=== PATIENT | male | born 1960 | race Caucasian/White ===

== ENCOUNTER 2019-02-05 13:53 | Emergency (ER) | payer MEDICAID, SELFPAY ==
[2019-02-05] VITALS (36 sets, daily range): BP systolic 113–150; BP diastolic 68–89; PULSE 70–93; RESP 8–27; TEMP 36.8; O2SAT 92–97
--- NOTE | 2019-02-05 13:58 | DI.CT_ITS ---
SYMPTOMS/DIAGNOSIS: CHEST PAIN, ? DISSECTION CTA OF THE CHEST, ABDOMEN AND PELVIS: The study was carried out according to the usual protocol with an intravenous injection of 125 cc of Omnipaque 350. CT angiography was performed with multi slice acquisition and multi planar and 3D reconstruction. CTA OF THE CHEST: No acute abnormality involving the lungs is demonstrated. There is no pleural effusion. The heart is not enlarged. There is no pericardial effusion. There is no evidence of PE. There is no evidence of an aortic aneurysm or dissection. Degenerative changes involving the dorsal spine are noted. No acute bony abnormalities identified. CTA OF THE ABDOMEN AND PELVIS: There is no evidence of an aortic aneurysm or aortic dissection. The abdominal aorta and iliac vessels are normal. When compared with the prior examination, again noted is a fatty liver. Two small cysts are demonstrated, one in the right hepatic lobe and one in the left hepatic lobe, unchanged. The pancreas, spleen, kidneys and adrenals are unremarkable. There is no evidence of bowel obstruction. There is nothing to suggest an acute appendix. There is no evidence of free air or free fluid in the intraperitoneal space. The bladder is intact. The reproductive organs as visualized are intact. Degenerative changes involving the lumbar spine are apparent. No acute bony abnormality is seen. SUMMARY: A CTA of the chest, abdomen and pelvis reveals no evidence of an aortic aneurysm. No evidence of dissection. There is no acute abnormality in the thorax, abdomen or pelvis.
--- NOTE | 2019-02-05 14:00 | W.ED.GENAD ---
Discharge Plan Discharge Details Chief Complaint: Chest Pain Primary Care Provider: Chayo Hill ED Provider: Fabrizio Rick Home Meds and New Rx's Prescriptions: No Action hydrochlorothiazide 25 mg tablet 25 mg PO DAILY Qty: 90 RF: 3 tamsulosin [Flomax] 0.4 MG capsule 0.4 mg PO DAILY Qty: 90 RF: 3 naproxen sodium 550 MG tablet 550 mg PO BID 10 Days Qty: 20 RF: 0 esomeprazole magnesium [Nexium] 40 mg capsule,delayed release(DR/EC) 40 mg PO DAILY Qty: 90 RF: 3 acetaminophen [Tylenol] 325 MG tablet 325 mg PO PRN PRNRF: 0 Medical Decision Making 58 yo male with hx of htn, hld, kathe, comes in with chief complaint of chest pressure. He states it started about an hour ago and doesn't increase with exertion. Does have pain with palpation to the anterior chest. Denies recent surgeries or immobilization. On exam he is noted to be hypertensive, no hypoxia ot rachycardia or dvt on exam to suggest pe. His ekg is unchanged, heart score is 3 based on risk factors and age, will send troponin. I am concerned for possible dissection so will obtain CTA cta negative per Dr. Gaviria and initial lab work unremarkable. He states symptoms are gone. Given heart score of 3 will obtain second troponin and ecg. Could be esophageal spasm that caused his pain, apparently did have fast food earlier today Differential Diagnosis acs, chest wall pain, dissection Medical Records Medical records reviewed: Yes I reviewed the patient's medical records. Imaging Data Radiologic Study: Attestation: I personally reviewed and interpreted this imaging study as follows: Radiologist's impression: SUMMARY: A CTA of the chest, abdomen and pelvis reveals no evidence of an aortic aneurysm. No evidence of dissection. There is no acute abnormality in the thorax, abdomen or pelvis. Lab Data Lab results reviewed: Yes I reviewed the patient's lab results. ECG Data Attestation: I personally reviewed and interpreted this ECG (s) as follows: Prior ECG tracings: available for review Interpretation: sinus rhythm, rate of 82, pr 160, no acute st t wave changes HPI General Mode of arrival: ambulatory. Date/Time Provider Initiated Documentation: 02/05/19 13:53. Limitations to Documentation: no limitations. Information obtained by: patient. History of Present Illness 58 year old M presents to the emergency department with the chief complaint of chest pain, described as moderate, Quality is described as aching and other (pressure), and is localized to the chest. Patient reports no radiation. Patient started experiencing this hour(s) (1) and it has been constant. No relieving factors improve symptom(s), No exacerbating factors reported . Patient notes no other symptoms.. Patient did receive the following treatments prior to arrival, none Related Data Home Medications Medication Instructions Recorded Confirmed acetaminophen [Tylenol] 325 mg PO PRN PRN 11/20/16 02/05/19 tamsulosin [Flomax] 0.4 mg PO DAILY #90 tab-cap 11/28/17 02/05/19 naproxen sodium 550 mg PO BID 10 Days #20 tab-cap 12/07/17 02/05/19 esomeprazole magnesium 40 mg 40 mg PO DAILY #90 tab-cap 07/22/18 02/05/19 capsule,delayed release hydrochlorothiazide 25 mg tablet 25 mg PO DAILY #90 tab 01/14/19 02/05/19 Previous Rx's Medication Instructions Recorded tamsulosin [Flomax] 0.4 mg PO DAILY #90 tab-cap 11/28/17 naproxen sodium 550 mg PO BID 10 Days #20 tab-cap 12/07/17 esomeprazole magnesium 40 mg 40 mg PO DAILY #90 tab-cap 07/22/18 capsule,delayed release hydrochlorothiazide 25 mg tablet 25 mg PO DAILY #90 tab 01/14/19 Allergies Allergy/AdvReac Type Severity Reaction Status Date / Time No Known Allergies Allergy Verified 02/05/19 13:58 General Stated Complaint: Chest Pain EVE: 2 Review of Systems Review of Systems All systems reviewed & are unremarkable except as noted in HPI and below Constitutional Denies chills, Denies fever(s) and Denies weakness ENT Denies change in voice Cardiovascular Denies chest pain and Denies dyspnea Respiratory Denies cough and Denies dyspnea Gastrointestinal Denies abdominal pain, Denies nausea and Denies vomiting Integumentary/Breasts Denies rash Neurologic Denies weakness [facility] Medical History BPH (benign prostatic hyperplasia) Barretts esophagus Essential hypertension GERD (gastroesophageal reflux disease) History of cardiac catheterization KATHE (obstructive sleep apnea) Surgical History Appendectomy Arthroplasty of knee Cardiac Catheterization Cholecystectomy (10/31/17) Colonoscopy - MAC EGD - MAC Repair, Tendon or Muscle Rotator Cuff Repair (11/20/16) Spinal Surgery Family History Father Essential hypertension Heart disease Hyperlipidemia Myocardial infarction Grandmother Diabetes Social History Smoking/Tobacco Use Status: Never Alcohol Intake: never Drug use: Never Substance use type: does not use Adopted: No Caregiver/Support person: No Foster care: No Number of Children: 4 Communication Needs: None Do you need help understanding health information?: Rarely 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 Current gender identity: male What type of physical activity do you participate in: none Do you feel safe at home: Yes Do you feel safe in your relationship?: Yes Exam Const General: no acute distress Orientation: alert HENMT Head: normal to inspection Ears: external ears normal General nose exam: external nose normal Mouth: moist mucous membranes Eyes General: appearance normal, both eyes and all related structures Neck Neck: normal visual inspection Resp Effort & Inspection: normal respiratory effort and able to speak in complete sentences Cardio Rate: regular rate Skin General skin exam: no rashes or lesions noted Neuro General: alert and oriented x3 Extrem General: normal to inspection Psych Mental Status: mental status grossly normal Course Vital Signs Temperature 36.8 C 02/05/19 13:55 Pulse 85 02/05/19 13:55 Respiratory Rate 20 02/05/19 13:55 Blood Pressure 150/89 H 02/05/19 13:55 Pulse Oximetry 94 L 02/05/19 13:55 Temperature 36.8 C 02/05/19 13:55 Temperature Source Temporal Artery Scan 02/05/19 13:55 Pulse 85 02/05/19 13:55 Respiratory Rate 20 02/05/19 13:59 Respiratory Effort Non-Labored 02/05/19 13:59 Respiratory Depth Normal 02/05/19 13:59 Respiratory Pattern Normal 02/05/19 13:59 Blood Pressure 150/89 H 02/05/19 13:55 Pulse Oximetry 94 L 02/05/19 13:55 Oxygen Delivery Method Room Air 02/05/19 13:55 Oxygen Flow Rate 0 02/05/19 13:55 Pain Level 10 02/05/19 13:59
[2019-02-05] MEDS: Aspirin 81 MG CHEW 324 MG CH (14:04)
--- NOTE | 2019-02-05 14:04 | ED.GENADUL_ITS ---
Discharge Plan Discharge Details Chief Complaint: Chest Pain Primary Care Provider: Chayo Hill ED Provider: Fabrizio Rick Home Meds and New Rx's Prescriptions: No Action hydrochlorothiazide 25 mg tablet 25 mg PO DAILY Qty: 90 RF: 3 tamsulosin [Flomax] 0.4 MG capsule 0.4 mg PO DAILY Qty: 90 RF: 3 naproxen sodium 550 MG tablet 550 mg PO BID 10 Days Qty: 20 RF: 0 esomeprazole magnesium [Nexium] 40 mg capsule,delayed release(DR/EC) 40 mg PO DAILY Qty: 90 RF: 3 acetaminophen [Tylenol] 325 MG tablet 325 mg PO PRN PRNRF: 0 Medical Decision Making 58 yo male with hx of htn, hld, kathe, comes in with chief complaint of chest pressure. He states it started about an hour ago and doesn't increase with exertion. Does have pain with palpation to the anterior chest. Denies recent surgeries or immobilization. On exam he is noted to be hypertensive, no hypoxia ot rachycardia or dvt on exam to suggest pe. His ekg is unchanged, heart score is 3 based on risk factors and age, will send troponin. I am concerned for possible dissection so will obtain CTA cta negative per Dr. Gaviria and initial lab work unremarkable. He states symptoms are gone. Given heart score of 3 will obtain second troponin and ecg. Could be esophageal spasm that caused his pain, apparently did have fast food earlier today Differential Diagnosis acs, chest wall pain, dissection Medical Records Medical records reviewed: Yes I reviewed the patient's medical records. Imaging Data Radiologic Study: Attestation: I personally reviewed and interpreted this imaging study as follows: Radiologist's impression: SUMMARY: A CTA of the chest, abdomen and pelvis reveals no evidence of an aortic aneurysm. No evidence of dissection. There is no acute abnormality in the thorax, abdomen or pelvis. Lab Data Lab results reviewed: Yes I reviewed the patient's lab results. ECG Data Attestation: I personally reviewed and interpreted this ECG (s) as follows: Prior ECG tracings: available for review Interpretation: sinus rhythm, rate of 82, pr 160, no acute st t wave changes HPI General Mode of arrival: ambulatory . Date/Time Provider Initiated Documentation: 02/05/19 13:53 . Limitations to Documentation: no limitations . Information obtained by: patient . History of Present Illness 58 year old M presents to the emergency department with the chief complaint of chest pain, described as moderate, Quality is described as aching and other (pressure), and is localized to the chest. Patient reports no radiation. Patient started experiencing this hour(s) (1) and it has been constant. No relieving factors improve symptom(s), No exacerbating factors reported . Patient notes no other symptoms.. Patient did receive the following treatments prior to arrival, none Related Data Home Medications Medication Instructions Recorded Confirmed acetaminophen [Tylenol] 325 mg PO PRN PRN 11/20/16 02/05/19 tamsulosin [Flomax] 0.4 mg PO DAILY #90 tab-cap 11/28/17 02/05/19 naproxen sodium 550 mg PO BID 10 Days #20 tab-cap 12/07/17 02/05/19 esomeprazole magnesium 40 mg 40 mg PO DAILY #90 tab-cap 07/22/18 02/05/19 capsule,delayed release hydrochlorothiazide 25 mg tablet 25 mg PO DAILY #90 tab 01/14/19 02/05/19 Previous Rx's Medication Instructions Recorded tamsulosin [Flomax] 0.4 mg PO DAILY #90 tab-cap 11/28/17 naproxen sodium 550 mg PO BID 10 Days #20 tab-cap 12/07/17 esomeprazole magnesium 40 mg 40 mg PO DAILY #90 tab-cap 07/22/18 capsule,delayed release hydrochlorothiazide 25 mg tablet 25 mg PO DAILY #90 tab 01/14/19 Allergies Allergy/AdvReac Type Severity Reaction Status Date / Time No Known Allergies Allergy Verified 02/05/19 13:58 General Stated Complaint: Chest Pain EVE: 2 Review of Systems Review of Systems All systems reviewed & are unremarkable except as noted in HPI and below Constitutional Denies chills, Denies fever(s) and Denies weakness ENT Denies change in voice Cardiovascular Denies chest pain and Denies dyspnea Respiratory Denies cough and Denies dyspnea Gastrointestinal Denies abdominal pain, Denies nausea and Denies vomiting Integumentary/Breasts Denies rash Neurologic Denies weakness [facility] Medical History BPH (benign prostatic hyperplasia) Barretts esophagus Essential hypertension GERD (gastroesophageal reflux disease) History of cardiac catheterization KATHE (obstructive sleep apnea) Surgical History Appendectomy Arthroplasty of knee Cardiac Catheterization Cholecystectomy (10/31/17) Colonoscopy - MAC EGD - MAC Repair, Tendon or Muscle Rotator Cuff Repair (11/20/16) Spinal Surgery Family History Father Essential hypertension Heart disease Hyperlipidemia Myocardial infarction Grandmother Diabetes Social History Smoking/Tobacco Use Status: Never Alcohol Intake: never Drug use: Never Substance use type: does not use Adopted: No Caregiver/Support person: No Foster care: No Number of Children: 4 Communication Needs: None Do you need help understanding health information?: Rarely 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 Current gender identity: male What type of physical activity do you participate in: none Do you feel safe at home: Yes Do you feel safe in your relationship?: Yes Exam Const General: no acute distress Orientation: alert HENMT Head: normal to inspection Ears: external ears normal General nose exam: external nose normal Mouth: moist mucous membranes Eyes General: appearance normal, both eyes and all related structures Neck Neck: normal visual inspection Resp Effort & Inspection: normal respiratory effort and able to speak in complete sentences Cardio Rate: regular rate Skin General skin exam: no rashes or lesions noted Neuro General: alert and oriented x3 Extrem General: normal to inspection Psych Mental Status: mental status grossly normal Course Vital Signs Temperature 36.8 C 02/05/19 13:55 Pulse 85 02/05/19 13:55 Respiratory Rate 20 02/05/19 13:55 Blood Pressure 150/89 H 02/05/19 13:55 Pulse Oximetry 94 L 02/05/19 13:55 Temperature 36.8 C 02/05/19 13:55 Temperature Source Temporal Artery Scan 02/05/19 13:55 Pulse 85 02/05/19 13:55 Respiratory Rate 20 02/05/19 13:59 Respiratory Effort Non-Labored 02/05/19 13:59 Respiratory Depth Normal 02/05/19 13:59 Respiratory Pattern Normal 02/05/19 13:59 Blood Pressure 150/89 H 02/05/19 13:55 Pulse Oximetry 94 L 02/05/19 13:55 Oxygen Delivery Method Room Air 02/05/19 13:55 Oxygen Flow Rate 0 02/05/19 13:55 Pain Level 10 02/05/19 13:59
[2019-02-05] MEDS: fentaNYL 100 MCG/2 ML VIAL IVP (14:05)
[2019-02-05 14:11] LABS: Abs Immature Grans 0.08 k/cumm (0.0-0.09); Absolute Basophil Count 0.07 k/cumm (0.0-0.2); Absolute Eosinophil Count 0.47 k/cumm (0.0-0.7); Absolute Lymphocyte Count 2.26 k/cumm (1.2-3.4); Absolute Monocyte Count 0.79 k/cumm (0.11-0.7); Absolute Neutrophil Count 6.24 k/cumm (1.2-6.7); Basophils % 0.7; Eosinophils % 4.7; HCT 47.2 % (40.0-50.0); HGB 15.9 g/dL (13.5-17.5); Immature Grans % 0.8; Lymphocytes % 22.8; Mean Corp. HGB Concentration 33.7 g/dL (32.0-36.0); Mean Corpuscular Hemoglobin 29.1 pg (27.0-33.0); Mean Corpuscular Volume 86.4 fL (80-95); Platelet Count 245 x1000/uL (130-400); RBC 5.46 m/cumm (4.50-6.00); RBC Distribution Width 12.8 % (11.8-14.1); White Blood Cell Count 9.91 k/cumm (4.4-10.8)
[2019-02-05 14:23] LABS: INR 0.9 (0.9-1.1); PTT Activated 21.2 sec (21.0-31.4); Prothrombin Time 9.4 sec (9.3-11.0)
[2019-02-05] MEDS: Omnipaque 350 MG/ML 100 ML BTL IJ (14:35)
[2019-02-05 14:36] LABS: ALT 53 U/L (12-78); AST 27 U/L (15-37); Albumin 3.9 g/dL (3.4-5.0); Alkaline Phosphatase 93 U/L (46-116); Anion Gap 10.4 mmol/L (3-11); BUN 28 mg/dL (7-18); Bilirubin, Total 0.5 mg/dL (0.2-1.0); CO2 29.6 mmol/L (21.0-32.0); CREATININE 1.19 mg/dL (0.70-1.30); Calcium 9.1 mg/dL (8.5-10.1); Chloride 102 mmol/L (98-107); Glucose 108 mg/dL (70-100); Magnesium 1.8 mg/dL (1.8-2.4); Potassium 3.5 mmol/L (3.5-5.1); Sodium 142 mmol/L (136-145); Total Protein 7.9 g/dL (6.4-8.2)
[2019-02-05] MEDS: Omnipaque 350 MG/ML 50 ML BTL IJ (14:36)
[2019-02-05 14:38] LABS: Troponin I < 0.02 ng/mL (0.00-0.06)
[2019-02-05 17:10] LABS: Troponin I 0.02 ng/mL (0.00-0.06)
== END 2019-02-05 17:24 | disposition home or self-care (01) ==
PROVIDERS: Emergency Provider Emergency Medicine; PCP Nurse Practitioner
DX: R07.89 Other chest pain (principal); I10 Essential (primary) hypertension
CPT/HCPCS: 36415; 71275; 74177; 80053; 93005; 96374; 99285; 83735; 84484; 85025; 85610; 85730; 93010; J3010; J3490; Q9967

== ENCOUNTER 2019-03-19 00:31 | Outpatient (CLI) | payer MEDICAID, SELFPAY ==
--- NOTE | 2019-03-19 08:30 | ETT_ITS ---
*[facility]* *[facility]* [address] [place] [address] Stress Electrocardiography Milton protocol Date of study: 03/19/2019 *PATIENT PRESENTATION* Height: 180.3cm (71in) Blood Pressure: Weight: 131.8kg (290lb) BSA: 2.63m^2 Referring physician: Chayo Hill Ordering physician: Chayo Hill Impressions: Normal study after maximal exercise. Summary: 1. Stress ECG conclusions: The stress ECG is negative. Walker treadmill score: 10. This score predicts a low risk of cardiac events. 2. Stress: The target heart rate was achieved. The heart rate response to stress is normal. There is a normal resting blood pressure with an appropriate response to stress. The patient experienced no chest pain during stress. Exercise capacity is average for age. 3. Treadmill exercise testing was performed using the Milton protocol. The patient exercised for 9 min 44 sec, to protocol stage 3, to a maximal work rate of 9.4mets. Exercise was terminated due to fatigue. Indication: R07.9, Appropriate Use Criteria: A (Appropriate). History: REASON FOR TESTING: PATIENT PRESENTED TO THE ER ON 02/05/19 WITH NONEXERTIONAL MIDSTERNAL CHEST PRESSURE THAT LASTED APPROXIMATELY 45 MINUTES. PATIENT DENIES ANY OTHER SYMPTOMS OTHER THAN THIS ONE EPISODE OF CHEST PRESSURE. EKG AND TROPONINS NEGATIVE IN THE ER. PATIENT DENIES CHEST PAIN/PRESSURE UPON ARRIVAL TO TESTING TODAY. SIGNIFICANT PAST MEDICAL HISTORY: HISTORY OF CARDIAC CATHERIZATION, AVALOS'S ESOPHAGUS, GERD, KATHE. SMOKING STATUS: NEVER. EXERCISE ROUTINE: ROAD CREW MEMBER, AND DAILY ADL'S. Risk factors: Family history of coronary artery disease. Hypertension. Obesity. Dyslipidemia. Cholesterol: 157mg/dl. HDL: 43mg/dl. LDL: 102mg/dl. Triglycerides: 223mg/dl. ALLERGIES: NO KNOWN MEDICATION ALLERGIES. MEDICATIONS: TAMULOSIN 0.4 MG DAILY, HYDROCHLOROTHIAZIDE 25 MG DAILY, ESOMEPRAZOLE MAGNESIUM 40 MG DAILY. Protocol: Milton protocol. Baseline ECG: SINUS RHYTHM. HR 63 BPM. Normal ECG. Stress protocol: + +---+ + !Stage !HR !BP (mmHg) ! + +---+ + !Baseline supine !63 !130/86 (101)! + +---+ + !Baseline standing !84 !134/90 (105)! + +---+ + !Stage I; 1.7mph, 10degrees; 3 min !113!138/82 (101)! + +---+ + !Stage II; 2.5mph, 12degrees; 3 min !126!140/82 (101)! + +---+ + !Stage III; 3.4mph, 14degrees; 3 min!146!158/80 (106)! + +---+ + !Recovery; 1 min !141!160/80 (107)! + +---+ + !Recovery; 3 min !98 !166/80 (109)! + +---+ + !Recovery; 6 min !96 !132/82 (99) ! + +---+ + !Recovery; 9 min !98 ! ! + +---+ + * Stress results: STRESS TEST ENDED IN 9 MINUTES 44 SECONDS DUE TO FATIGUE. NORMAL HEART RATE AND BLOOD PRESSURE. MAX HEART RATE: 164 101 % OF TARGET HEART RATE ACHIEVED. MET'S: 9.44. RARE PVC'S DURING EXERCISE AND RECOVERY. NO ANGINA. NO SIGNIFICANT ST SEGMENT CHANGES. AVERAGE FUNCTIONAL CAPACITY FOR EXERCISE: Maximal heart rate during stress was 164bpm (101% of maximal predicted heart rate). The maximal predicted heart rate was 162bpm. The target heart rate was achieved. The heart rate response to stress is normal. There is a normal resting blood pressure with an appropriate response to stress. The rate-pressure product for the peak heart rate and blood pressure was 81527hh Hg/min. The patient experienced no chest pain during stress. Exercise capacity is average for age. Stress ECG: The stress ECG is negative. Walker treadmill score: 10. This score predicts a low risk of cardiac events. Study data: Jakub Collazo MD supervised and was readily available during the procedure. This study was interpreted by [facility]. Study status: Routine. Consent: The risks, benefits, and alternatives to the procedure were explained to the patient and informed consent was obtained. Procedure: Initial setup. A baseline ECG was recorded. Surface ECG leads and manual cuff blood pressure measurements were monitored. Heart sounds: Normal. Lung sounds: Normal. Treadmill exercise testing was performed using the Milton protocol. The patient exercised for 9 min 44 sec, to protocol stage 3, to a maximal work rate of 9.4mets. Exercise was terminated due to fatigue. Study completion: The patient tolerated the procedure well and was discharged from the lab. Discharge: The patient left the laboratory in stable condition. Birthdate: Patient birthdate: 1960. Sex: Gender: male. Study date: Study date: 03/19/2019. Study time: 00:01 AM. Signature Documentation: The Stress ECG portion of this study was interpreted by Jakub Collazo MD. Electronically signed by Jakub Collazo 03/19/2019 10:12
== END 2019-03-19 00:51 ==
PROVIDERS: PCP Nurse Practitioner; Visit Provider Nurse Practitioner
DX: R07.9 Chest pain, unspecified (principal); I10 Essential (primary) hypertension; E78.5 Hyperlipidemia, unspecified; K22.70 Barrett's esophagus without dysplasia; Z82.49 Family history of ischemic heart disease and other diseases of the circulatory system
CPT/HCPCS: 93017

== ENCOUNTER 2021-05-26 19:01 | Emergency (ER) | payer SELFPAY ==
--- NOTE | 2021-05-26 19:15 | DI.RAD_ITS ---
Exam(s) XR FOOT RT COMPLETE EXAM: XR FOOT RT COMPLETE CLINICAL HISTORY: great toe pain radiating into foot. TECHNIQUE: 2D digital imaging was performed. COMPARISON: No exams were available for comparison FINDINGS: BONES: No acute fracture is present. No bony destructive lesion is seen. There is a small plantar ca lcaneal spur. JOINTS: No dislocation present. There are degenerative changes seen in the foot, for instance at the talonavicular joint. Mild joint space narrowing of the 1st MTP joint is noted. SOFT TISSUE: Normal. IMPRESSION: 1. Mild degenerative changes of the foot. 2. No acute fracture or dislocation. DATA REPOSITORY: RADIATION DOSE DELIVERED:
--- NOTE | 2021-05-26 19:24 | ED.GENADUL_ITS ---
Discharge Plan Disposition Patient Disposition: HOME Condition: Good Discharge Details Clinical Impression: Gout attack Primary Care Provider: Chayo Hill ED Provider: Antony Garcia Meds and New Rx's Prescriptions: New colchicine [Colcrys] 0.6 mg Tablet 0.6 mg PO HS Qty: 10 RF: 0 Oxycodone, 4 Tabs/Btl [Roxicodone, 4 Tabs/Btl] 5 mg PO BID PRN (Reason: Pain) Qty: 4 RF: 0 Continued esomeprazole magnesium [Nexium] 40 mg capsule,delayed release(DR/EC) 40 mg PO DAILY Qty: 90 RF: 3 hydrochlorothiazide 25 mg tablet 25 mg PO DAILY Qty: 90 RF: 3 tamsulosin [Flomax] 0.4 mg capsule 0.4 mg PO DAILY Qty: 90 RF: 3 Changed acetaminophen [Tylenol] 325 MG tablet 650 mg PO Q6H PRNQty: 0 RF: 0 Discharge Instructions Instructions: Gout (ED), Opioid Safety (ED) Additional Instructions: This is likely acute gout flare which should resolve on colchicine. Please take 1 tablet of colchicine at night until pain/swelling has resolved. You may use the oxycodone we have given for severe pain. May also use Tylenol. Wear postop boot and weight-bear as tolerated. Follow-up with primary care next week. Return to ED for increasing pain, fever, other joint involvement, other concerns Referrals: Chayo Hill, [facility] [Primary Care Provider] - Discharge Data Discharge Date/Time-TO BE ENTERED AT DEPARTURE: 05/26/21 22:55 Medical Decision Making <MARY Mak - Last Filed: 05/26/21 22:40> Patient is a pleasant 60-year-old male presents with chief complaint of right great toe pain. Reports this began a few hours ago. Past medical history is pertinent for hypertension, GERD, KATHE. He states that he had insidious onset of right great toe pain after driving today. Has not had pain like this historically. No known trauma. On exam, patient appears nontoxic. He has exquisite discomfort with gentle palpation over the base of the right great toe. Intact capillary refill, no erythema or warmth. He has no pain proximal or distal to the area met tenderness. History and exam is most consistent with gout. He has not had gout historically. Patient certainly does have risk factors for this. Will obtain x-ray as well as baseline blood work. He just took 800 mg of ibuprofen prior to coming to the department. I do not see any evidence to suggest infectious etiology at this time When blood was being drawn, patient suffered a vasovagal event. No LOC but BP dropped and he felt presyncopal. He reports this is associated with severe pain in his foot. STates he has had similar episode in the past. Patient laid down, treated pain. Patient reevaluated. Foot has been immobilized in postoperative shoe. Given Oxy codone. At the end of my shift, care transitioned to Dr. Garcia with labs and imaging pending. Primarily concerned for gout. <Antony Garcia MD - Last Filed: 05/27/21 01:33> Patient signed out to me pending laboratory studies/x-rays. He had presented with onset of left big toe pain with no known injury. Please see MARY Sun's initial note for presentation. Patient with exquisite pain involving the IP joint of the big toe without erythema or warmth. No prior history of gout. Laboratory studies with normal white count. Chemistries unremarkable other than low potassium consistent with him being on hydrochlorothiazide. Uric acid is elevated. X-ray is negative. Patient had already received a dose of oxycodone. Continues to have significant pain so repeat dose given. Will treat presumed acute gout flare with colchicine and is given 1.2 mg followed by 0.6 mg here in the emergency department. Home to use 0.6 mg nightly until pain resolved. 4 oxycodone to go given for severe pain over the next day or 2. Instruction sheet and informed consent obtained on use of opiates. Patient to follow-up with primary care next week if not improving. Return to ED if increasing pain/swelling, fever, other joint involvement, other concerns. Lab Data Lab results reviewed: Yes I reviewed the patient's lab results. HPI <MARY Mak - Last Filed: 05/26/21 22:40> General Date/Time Provider Initiated Documentation: 05/26/21 19:23 . Limitations to Documentation: no limitations . Information obtained by: patient and RN notes reviewed . History of Present Illness 60 year old M presents to the emergency department with the chief complaint of right great toe pain, described as severe, Quality is described as stabbing, and is localized to the right and lower extremity. Patient extremity. Patient started experiencing this hour(s) and it has been constant. Immobilization improves symptom(s), Movement worsens symptoms . Patient notes no other symptoms.. Patient did receive the following treatments prior to arrival, NSAID Related Data Home Medications Medication Instructions Recorded Confirmed esomeprazole magnesium 40 mg 40 mg PO DAILY #90 tab-cap 12/13/20 12/13/20 capsule,delayed release hydrochlorothiazide 25 mg tablet 25 mg PO DAILY #90 tab 12/13/20 12/13/20 tamsulosin 0.4 mg capsule 0.4 mg PO DAILY #90 tab-cap 12/13/20 12/13/20 acetaminophen [Tylenol] 650 mg PO Q6H PRN #0 tab 05/26/21 06/12/19 colchicine [Colcrys] 0.6 mg PO HS #10 tab 05/26/21 oxyCODONE, 4 tabs/btl [Roxicodone, 5 mg PO BID PRN #4 cap 05/26/21 4 tabs/btl] Previous Rx's Medication Instructions Recorded esomeprazole magnesium 40 mg 40 mg PO DAILY #90 tab-cap 12/13/20 capsule,delayed release hydrochlorothiazide 25 mg tablet 25 mg PO DAILY #90 tab 12/13/20 tamsulosin 0.4 mg capsule 0.4 mg PO DAILY #90 tab-cap 12/13/20 acetaminophen [Tylenol] 650 mg PO Q6H PRN #0 tab 05/26/21 colchicine [Colcrys] 0.6 mg PO HS #10 tab 05/26/21 oxyCODONE, 4 tabs/btl [Roxicodone, 5 mg PO BID PRN #4 cap 05/26/21 4 tabs/btl] Allergies Allergy/AdvReac Type Severity Reaction Status Date / Time No Known Allergies Allergy Verified 05/03/21 15:26 General EVE: 2 Review of Systems <MARY Mak - Last Filed: 05/26/21 22:40> Constitutional Constitutional: Reports as per HPI, Denies chills, Denies fever(s), Denies headache(s) and Denies weakness ENT Ears, Nose, Mouth, and Throat: Denies headache(s) Cardiovascular Cardiovascular: Reports as per HPI Respiratory Respiratory: Reports as per HPI and Denies cough Musculoskeletal Musculoskeletal: Reports as per HPI and Denies tingling Integumentary/Breasts Skin/Breast: Reports as per HPI, Denies rash and Denies wounds Neurologic Neurologic: Reports as per HPI, Denies headache(s), Denies tingling, Denies paresthesias and Denies weakness PFSH <MARY Mak - Last Filed: 05/26/21 22:40> Medical History Barretts esophagus BPH (benign prostatic hyperplasia) Essential hypertension GERD (gastroesophageal reflux disease) History of cardiac catheterization KATHE (obstructive sleep apnea) on bipap Surgical History Appendectomy Arthroplasty of knee right Cardiac Catheterization Cholecystectomy (10/31/17) Colonoscopy - MAC EGD - MAC Repair, Tendon or Muscle Rotator Cuff Repair (11/20/16) Dr Kimani Esteban repair and tenodesis long head of R biceps S/P cholecystectomy Spinal Surgery Family History Father Essential hypertension Heart disease Hyperlipidemia Myocardial infarction Grandmother Diabetes Social History Smoking/Tobacco Use Status: Never Smoking risk assessment performed?: Yes Alcohol Intake: never Drug use: Never Substance use type: does not use Adopted: No Caregiver/Support person: No Foster care: No Number of Children: 4 Communication Needs: None Do you need help understanding health information?: Rarely 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 Current gender identity: male What type of physical activity do you participate in: none Do you feel safe at home: Yes Do you feel safe in your relationship?: Yes Exam <MARY Mak - Last Filed: 05/26/21 22:40> Const General: cooperative, healthy appearing, uncomfortable, no acute distress, well developed and well groomed Nutritional Appearance: well nourished and overweight Orientation: alert and awake Resp Effort & Inspection: normal respiratory effort, able to speak in complete sentences and no respiratory distress Cardio Rate: regular rate Rhythm: regular rhythm Skin General skin exam: no rashes or lesions noted Lesions: no lesions Rashes: no rashes Trauma: no lacerations or abrasions Neuro General: patient alert and patient awake Cognition: normal cognition Speech: speech normal Gait: antalgic Motor: muscle tone normal throughout Sensory Exam: no sensory deficits noted Psych Appearance: grossly normal and well kempt Mental Status: mental status grossly normal Speech and Movement: speech and movement normal Sign Out <MARY Mak - Last Filed: 05/26/21 22:40> Sign Out Data: Sign Out Comment: Care transitioned to Dr. Garcia with labs and imaging pending. Pain right great toe. Primarily concerned for gout. Received 5mg oxycodone. Patient had vasovagal episode with severe pain, currently resting comfortably. POst op shoe in place. Last updated by Bety Sun PA at 05/26/21 20:34
[2021-05-26] MEDS: oxyCODONE 5 MG TAB PO ×2 (20:05→22:00)
[2021-05-26 20:07] LABS: Abs Immature Grans 0.06 10^3/uL (0.0-0.06); Absolute Basophil Count 0.07 10^3/uL (0.0-0.2); Absolute Eosinophil Count 0.41 10^3/uL (0.0-0.7); Absolute Lymphocyte Count 2.21 10^3/uL (1.2-3.4); Absolute Monocyte Count 1.12 10^3/uL (0.1-0.8); Absolute Neutrophil Count 6.67 10^3/uL (1.2-6.7); Basophils % 0.7; Eosinophils % 3.9; HCT 42.5 % (40.0-50.0); HGB 14.4 g/dL (13.5-17.5); Immature Grans % 0.6; MCH 29.6 pg (27.0-33.0); MCHC 33.9 % (32.0-36.0); MCV 87.4 fL (80-95); MPV 8.9 fL (8.0-11.0); Monocytes % 10.6; Neutrophils % 63.2; Nucleated RBC 0 %; Platelet Count 247 10^3/uL (130-400); RBC 4.86 10^6/uL (4.36-5.78); RDW 12.2 % (11.8-14.1); RDW-SD 38.6 fL; WBC 10.54 10^3/uL (4.4-10.8)
[2021-05-26 20:09] VITALS: BP 60/30; PULSE 84; RESP 12; TEMP 36.8; O2SAT 99
[2021-05-26 20:10] VITALS: BP 119/71
--- NOTE | 2021-05-26 20:10 | NUR.NOTE ---
pt became pale and was not responsive while drawing blood, BP was 60/30 Bety aware, CBG was 123, pt reassessed and BP improved to 119/71 pt is alert and responsive currently GCS 15, medicated for pain and safety maintained, will continue to monitor.
[2021-05-26 20:17] LABS: Anion Gap 5.2 mmol/L (3-11); BUN 22 mg/dL (7-18); CO2 29.8 mmol/L (21.0-32.0); CREATININE 1.2 mg/dL (0.70-1.30); Calcium 8.2 mg/dL (8.5-10.1); Chloride 105 mmol/L (98-107); Glucose 104 mg/dL (74-106); Sodium 140 mmol/L (136-145); Uric Acid 9.5 mg/dL (3.5-7.2)
--- NOTE | 2021-05-26 21:09 | DI.VRAD_ITS ---
PROCEDURE INFORMATION: Exam: XR Right Foot Exam date and time: 05/26/2021 7:30 PM Age: 60 years old Clinical indication: Other: Great toe pain radiating into feet TECHNIQUE: Imaging protocol: XR Right foot. Views: 3 or more views. COMPARISON: No relevant prior studies available. FINDINGS: Bones/joints: Degenerative changes of the tarsal bones. Degenerative changes of the 1st metatarsal phalangeal joint and the 4th PIP joint. No fracture. Soft tissues: Mild soft tissue swelling. IMPRESSION: No acute bony findings. If clinical symptoms persist recommend followup film in 7-10 days. Dictated and Authenticated by: Myah Rosas MD. Ordering:ARUNA Albert MD
[2021-05-26 21:12] VITALS: BP 121/63; PULSE 72; RESP 12; O2SAT 99
--- NOTE | 2021-05-26 21:26 | NUR.NOTE ---
pt seen in bed sleeping, no signs of pain or distress, VS WNL, will continue to monitor and maintain safety
[2021-05-26] MEDS: Colchicine 0.6 MG TAB 1.2 MG PO (21:56)
[2021-05-26] MEDS: Colchicine 0.6 MG TAB PO (22:40)
[2021-05-26 22:57] VITALS: BP 125/77; PULSE 78; RESP 16; TEMP 37; O2SAT 99
== END 2021-05-26 22:55 | disposition home or self-care (01) ==
PROVIDERS: Physician Assistant; Emergency Provider Emergency Medicine; PCP Nurse Practitioner
DX: M10.9 Gout, unspecified (principal); R55 Syncope and collapse
CPT/HCPCS: 36415; 36416; 80048; 82962; 99284; 73630; 84550; 85025

== ENCOUNTER 2021-09-05 11:12 | Outpatient (CLI) | payer SELFPAY ==
[2021-09-05 13:21] VITALS: BP 146/92; PULSE 92; RESP 20; TEMP 38.4; O2SAT 95
[2021-09-05 14:16] VITALS: BP 127/79; PULSE 91; RESP 32; TEMP 39.2; O2SAT 94
[2021-09-05 14:31] VITALS: BP 136/87; PULSE 92; RESP 32; TEMP 38.4; O2SAT 95
[2021-09-05 15:03] VITALS: BP 128/79; PULSE 93; RESP 28; TEMP 39.3; O2SAT 94
[2021-09-05 15:31] VITALS: BP 127/81; PULSE 81; RESP 28; TEMP 39.6; O2SAT 92
== END 2021-09-05 11:13 | disposition home or self-care (01) ==
LOC: INF 11:13
PROVIDERS: PCP Nurse Practitioner; Visit Provider Family Medicine
DX: U07.1 COVID-19 (principal)
CPT/HCPCS: 96365

== ENCOUNTER 2021-09-06 09:29 | Inpatient (IN) | payer SELFPAY ==
[2021-09-06] VITALS (28 sets, daily range): BP systolic 126–159; BP diastolic 63–93; PULSE 63–140; RESP 16–41; TEMP 36.9–37.5; O2SAT 86–100
--- NOTE | 2021-09-06 09:59 | W.ED.GENAD ---
Discharge Plan Disposition Patient Disposition: [facility] INPATIENT Condition: Stable Discharge Details Clinical Impression: COVID-19, Multifocal pneumonia, Hypoxia, On supplemental oxygen therapy Admit Date/Time: 09/06/21 12:46 Admit Provider: Geovanny Gallardo Attending Provider: Geovanny Gallardo Primary Care Provider: Chayo Hill ED Provider: Jaci Brown Discharge Data Discharge Date/Time-TO BE ENTERED AT DEPARTURE: 09/06/21 13:48 Medical Decision Making 60-year-old male who is unvaccinated for Covid diagnosed with COVID-19 3 days ago presents with cough and shortness of breath for a few days and hypoxia with O2 sats in the 80s at rest at home today. Oxygen saturation 88% on room air on arrival. Now 95% on 1 L. Patient has persistent coughing and diffuse wheezing and rhonchi throughout. Consider pneumonia or PE. Will give a DuoNeb, IV Solu-Medrol, fluids, screening labs, CT chest and reassess. Labs and imaging reviewed. White blood cell count 11. Potassium 3.2, will replete. Troponin negative. Unable to obtain proof of patient's outpatient positive Covid 19 result. In-house Covid obtained here and positive. CT chest notes multifocal pneumonia but no PE. Nasal cannula had been held after neb treatment as patient felt better. His oxygen saturation dropped to mid 80s on room air at rest and increased to mid 90s on 2L NC. Will admit for neb treatments, IV steroids, IV antivirals, and supplemental oxygen. Patient is agreeable with plan. Case discussed with hospitalist who accepts pt for admission. Medical Records Medical records reviewed: Yes I reviewed the patient's medical records. Imaging Data Radiologic Study: Radiologist's impression: CT CHEST PE CTA CLINICAL HISTORY: shortness of breath, cough, fever, r/o pneumonia. TECHNIQUE: Imaging Protocol: Axial CT angiography was performed with multi-slice acquisition and multi-planar and/or 3D reconstructions. CONTRAST MATERIAL: Intravenous: Omnipaque 350 Contrast volume:structured data in ml COMPARISON: CT ABD PELVIS WITH CONTRAST from 10/24/2017 CT ABD PELVIS WITH CONTRAST from 10/24/[address] thorax abd/pel CTA from 02/05/2019 FINDINGS: CT angiography of the chest was performed with intravenous infusion of 100 cc of Omnipaque 350. There are multi focal bilateral predominantly peripheral ground-glass and consolidative opacities consistent with acute infectious process.. No pleural effusion. Tracheobronchial tree appears intact. No evidence of pulmonary embolic disease. Thoracic aorta is of normal diameter, no thoracic aortic aneurysm or dissection, major branch vessels appear intact. No mediastinal or hilar adenopathy. Images obtained through the upper abdomen show probable hepatic steatosis unremarkable appearance visualized portions of spleen pancreas and adrenals. There is a left hepatic lobe presumed cyst which was also present on prior examination of January 2019 and unchanged since that time. IMPRESSION: Multi focal ground-glass and consolidative opacities, the appearance is consistent with multifocal pneumonia. No evidence of pulmonary embolic disease. Lab Data Lab results reviewed: Yes I reviewed the patient's lab results. Labs: Laboratory Tests Range/Units 09/06/21 09/06/21 09/06/21 10:16 10:16 11:55 WBC (4.4-10.8) 10^3/uL 11.20 H RBC (4.36-5.78) 10^6/uL 5.76 Hgb (13.5-17.5) g/dL 16.8 Hct (40.0-50.0) % 50.5 H MCV (80-95) fL 87.7 MCH (27.0-33.0) pg 29.2 MCHC (32.0-36.0) % 33.3 RDW (11.8-14.1) % 13.1 Plt Count (130-400) 10^3/uL 184 MPV (8.0-11.0) fL 9.4 Immature Gran % 0.8 Neutrophils % 84.1 Lymphocytes % 11.9 Monocytes % 2.9 Eosinophils % 0.0 Basophils % 0.3 Nucleated RBC % % 0 Absolute Neutrophils (1.2-6.7) 10^3/uL 9.42 H Absolute Lymphocytes (1.2-3.4) 10^3/uL 1.33 Absolute Monocytes (0.1-0.8) 10^3/uL 0.32 Absolute Eosinophils (0.0-0.7) 10^3/uL 0.00 Absolute Basophils (0.0-0.2) 10^3/uL 0.03 Sodium (136-145) mmol/L 135 L Potassium (3.5-5.1) mmol/L 3.2 L Chloride (98-107) mmol/L 95 L Carbon Dioxide (21.0-32.0) mmol/L 31.9 Anion Gap (3-11) mmol/L 8.1 BUN (7-18) mg/dL 28 H Creatinine (0.70-1.30) mg/dL 1.4 H Estimated GFR/1.73 m2 (mL/min/1.73m2) 51.69 Glucose (74-106) mg/dL 113 H Calcium (8.5-10.1) mg/dL 8.6 Magnesium (1.8-2.4) mg/dL 2.2 Total Bilirubin (0.2-1.0) mg/dL 0.7 AST (15-37) U/L 55 H ALT (16-63) U/L 38 Alkaline Phosphatase (46-116) U/L 65 Troponin I (<0.06) ng/mL < 0.05 Total Protein (6.4-8.2) g/dL 8.0 Albumin (3.4-5.0) g/dL 3.6 COVID-19 Source Nasal/Nares SARS-CoV-2 (PCR) (Negative) Positive A* ECG Data Attestation: I personally reviewed and interpreted this ECG (s) as follows: Interpretation: rate of 89, sinus, no acute ST elevation or depression. GA 156. QRS 99. QTc 422. HPI General Mode of arrival: ambulatory. Date/Time Provider Initiated Documentation: 09/06/21 09:30. Limitations to Documentation: no limitations. Information obtained by: patient. HPI Narrative: Patient is a 60-year-old male with a history of BPH, GERD, hypertension recently diagnosed with COVID-19 3 days ago presents with cough and shortness of breath for the past 3 days, with hypoxia with oxygen saturation in the 80s at rest at home today. Patient's family has Covid. He is unvaccinated and states he will not get the vaccine. He cannot give a specific reason for why he will not vaccinated. Patient states he received the outpatient monoclonal antibody infusion yesterday and has been worse since then. He states he had a fever of 101 yesterday. He states his oxygen saturation was in the mid 80s at rest at home today. He admits to significant fatigue. Related Data Home Medications Medication Instructions Recorded Confirmed esomeprazole magnesium 40 mg 40 mg PO DAILY #90 tab-cap 12/13/20 09/06/21 capsule,delayed release hydrochlorothiazide 25 mg tablet 25 mg PO DAILY #90 tab 12/13/20 09/06/21 tamsulosin 0.4 mg capsule 0.4 mg PO DAILY #90 tab-cap 12/13/20 09/06/21 acetaminophen [Tylenol] 650 mg PO Q6H PRN #0 tab 05/26/21 09/06/21 albuterol sulfate 90 mcg/actuation 1 - 2 puff INHALATION Q4H PRN #8.5 09/05/21 09/06/21 aerosol inhaler g ibuprofen 600 mg tablet 600 mg PO TID PRN #30 tab 09/05/21 09/06/21 Previous Rx's Medication Instructions Recorded esomeprazole magnesium 40 mg 40 mg PO DAILY #90 tab-cap 12/13/20 capsule,delayed release hydrochlorothiazide 25 mg tablet 25 mg PO DAILY #90 tab 12/13/20 tamsulosin 0.4 mg capsule 0.4 mg PO DAILY #90 tab-cap 12/13/20 acetaminophen [Tylenol] 650 mg PO Q6H PRN #0 tab 05/26/21 albuterol sulfate 90 mcg/actuation 1 - 2 puff INHALATION Q4H PRN #8.5 09/05/21 aerosol inhaler g ibuprofen 600 mg tablet 600 mg PO TID PRN #30 tab 09/05/21 Allergies Allergy/AdvReac Type Severity Reaction Status Date / Time No Known Allergies Allergy Verified 09/06/21 09:49 General Stated Complaint: SOB EVE: 3 Review of Systems All systems reviewed & are unremarkable except as noted in HPI and below Constitutional Constitutional: Reports as per HPI, Denies chills and Reports fever(s) Eyes Eyes: Denies blurry vision ENT Ears, Nose, Mouth, and Throat: Denies dizziness, Denies sore throat and Denies throat swelling Cardiovascular Cardiovascular: Denies chest pain and Reports dyspnea Respiratory Respiratory: Reports cough and Reports dyspnea Gastrointestinal Gastrointestinal: Denies abdominal pain, Denies diarrhea and Denies vomiting Genitourinary Genitourinary: Denies hematuria and Denies dysuria Musculoskeletal Musculoskeletal: Denies back pain and Denies numbness Integumentary/Breasts Skin/Breast: Denies lesions and Denies rash Neurologic Neurologic: Denies dizziness, Denies localized weakness and Denies numbness Allergic/Immunologic Allergic/Immunologic: Denies throat swelling PFSH Medical History Barretts esophagus BPH (benign prostatic hyperplasia) Essential hypertension GERD (gastroesophageal reflux disease) History of cardiac catheterization KATHE (obstructive sleep apnea) on bipap Surgical History Appendectomy Arthroplasty of knee right Cardiac Catheterization Cholecystectomy (10/31/17) Colonoscopy - MAC EGD - MAC Repair, Tendon or Muscle Rotator Cuff Repair (11/20/16) Dr Harman R repair and tenodesis long head of R biceps S/P cholecystectomy Spinal Surgery Family History Father Essential hypertension Heart disease Hyperlipidemia Myocardial infarction Grandmother Diabetes Social History Smoking/Tobacco Use Status: Never Smoking risk assessment performed?: Yes Alcohol Intake: never Drug use: Never Substance use type: does not use Adopted: No Caregiver/Support person: No Foster care: No Number of Children: 4 Communication Needs: None Do you need help understanding health information?: Rarely 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 Current gender identity: male What type of physical activity do you participate in: none Do you feel safe at home: Yes Do you feel safe in your relationship?: Yes Exam Const General: cooperative and no acute distress HENMT Head: normal to inspection Face and sinus: normal facial exam Eyes General: appearance normal, both eyes and all related structures EOM: EOM intact bilaterally Neck Neck: normal visual inspection and No submandibular swelling Lymphatic: no lymphadenopathy noted Chest Chest: normal inspection of the chest and no tenderness Resp Effort & Inspection: normal respiratory effort and able to speak in complete sentences Auscultation: rhonchi upper bilaterally and lower bilaterally and wheezes scattered wheezes Cardio Rate: regular rate Rhythm: regular rhythm GI Inspection: normal to inspection Palpation: soft, not firm, not rigid and nontender Auscultation: normal bowel sounds Skin General skin exam: no rashes or lesions noted Neuro General: patient alert, patient awake and patient oriented x3 Cognition: normal cognition Speech: speech normal Motor: muscle tone normal throughout Sensory Exam: no sensory deficits noted Extrem General: normal to inspection, full ROM, capillary refill normal, no calf tenderness bilaterally and no edema Psych Appearance: grossly normal Mental Status: mental status grossly normal Speech and Movement: speech and movement normal Affect: normal affect Course Vital Signs Vital signs: Vital Signs Temperature 98.4 F 09/06/21 09:41 Pulse 90 09/06/21 09:41 Respiratory Rate 30 H 09/06/21 09:41 Blood Pressure 127/83 09/06/21 09:41 Pulse Oximetry 92 09/06/21 09:41 Temperature 98.4 F 09/06/21 09:41 Temperature Source Oral 09/06/21 09:41 Pulse 90 09/06/21 09:41 Respiratory Rate 30 H 09/06/21 09:41 Respiratory Effort 09/06/21 09:41 Blood Pressure 127/83 09/06/21 09:41 Blood Pressure Position Supine 09/06/21 09:41 Pulse Oximetry 92 09/06/21 09:41 Oxygen Delivery Method Room Air 09/06/21 09:41 Oxygen Flow Rate 0 09/06/21 09:41 Pain Level 2 09/06/21 09:41
--- NOTE | 2021-09-06 10:15 | RT.EKG_ITS ---
APPROVED REPORT Exam: Resting ECG Reason for Exam: shortness of breath Patient Location: E HR:89 bpm ECG Measurements Heart Rate 89 AXIS DC 156 P 51 QRSd 99 QRS -5 QT 347 T 31 QTc 422 Conclusion Sinus rhythm...normal P axis, V-rate 60- 99. Sinus. No STEMI. I have reviewed and interpreted ECG and agree with software generated interpretation.
[2021-09-06 10:33] LABS: Abs Immature Grans 0.09 10^3/uL (0.0-0.06); Absolute Basophil Count 0.03 10^3/uL (0.0-0.2); Absolute Lymphocyte Count 1.33 10^3/uL (1.2-3.4); Absolute Neutrophil Count 9.42 10^3/uL (1.2-6.7); Basophils % 0.3; HCT 50.5 % (40.0-50.0); HGB 16.8 g/dL (13.5-17.5); Immature Grans % 0.8; Lymphocytes % 11.9; MCH 29.2 pg (27.0-33.0); MCHC 33.3 % (32.0-36.0); MCV 87.7 fL (80-95); MPV 9.4 fL (8.0-11.0); Monocytes % 2.9; Neutrophils % 84.1; Nucleated RBC 0 %; Platelet Count 184 10^3/uL (130-400); RBC 5.76 10^6/uL (4.36-5.78); RDW 13.1 % (11.8-14.1)
[2021-09-06 10:34] LABS: Absolute Monocyte Count 0.32 10^3/uL (0.1-0.8)
[2021-09-06] MEDS: Albuterol/Ipratropium 3 ML UPD VIAL UPD (10:36)
[2021-09-06] MEDS: methylPREDNISolone SUCC 125 MG VIAL IVP (10:36)
[2021-09-06] MEDS: Normal Saline 1,000 ML 1000 ML IV (10:41)
[2021-09-06 10:50] LABS: ALT 38 U/L (16-63); AST 55 U/L (15-37); Albumin 3.6 g/dL (3.4-5.0); Alkaline Phosphatase 65 U/L (46-116); Anion Gap 8.1 mmol/L (3-11); BUN 28 mg/dL (7-18); Bilirubin, Total 0.7 mg/dL (0.2-1.0); CO2 31.9 mmol/L (21.0-32.0); CREATININE 1.4 mg/dL (0.70-1.30); Calcium 8.6 mg/dL (8.5-10.1); Chloride 95 mmol/L (98-107); Estimated GFR 51.69 (mL/min/1.73m2); Glucose 113 mg/dL (74-106); Magnesium 2.2 mg/dL (1.8-2.4); Potassium 3.2 mmol/L (3.5-5.1); Sodium 135 mmol/L (136-145)
[2021-09-06 10:54] LABS: Troponin I < 0.05 ng/mL (<0.06)
[2021-09-06] MEDS: Omnipaque 350 MG/ML 100 ML BTL IJ (11:23)
--- NOTE | 2021-09-06 11:29 | DI.CT_ITS ---
Exam(s) CT CHEST PE CTA EXAM: CT CHEST PE CTA CLINICAL HISTORY: shortness of breath, cough, fever, r/o pneumonia. TECHNIQUE: Imaging Protocol: Axial CT angiography was performed with multi-slice acquisition and mu lti-planar and/or 3D reconstructions. CONTRAST MATERIAL: Intravenous: Omnipaque 350 Contrast volume:structured data in ml COMPARISON: CT ABD PELVIS WITH CONTRAST from 10/24/2017 CT ABD PELVIS WITH CONTRAST from 10/24/[address] thorax abd/pel CTA from 02/05/2019 FINDINGS: CT angiography of the chest was performed with intravenous infusion of 100 cc of Omnipaque 350. There are multi focal bilateral predominantly peripheral ground-glass and consolidative opacities con sistent with acute infectious process.. No pleural effusion. Tracheobronchial tree appears intact. No evidence of pulmonary embolic disease. Thoracic aorta is of normal diameter, no thoracic aortic an eurysm or dissection, major branch vessels appear intact. No mediastinal or hilar adenopathy. Images obtained through the upper abdomen show probable hepatic steatosis unremarkable appearance vis ualized portions of spleen pancreas and adrenals. There is a left hepatic lobe presumed cyst which w as also present on prior examination of January 2019 and unchanged since that time. IMPRESSION: Multi focal ground-glass and consolidative opacities, the appearance is consistent with multifocal pn eumonia. No evidence of pulmonary embolic disease. RADIATION DOSE DELIVERED: 615.4mGy.cm Total DLP 615.4mGy.cm Total DLP CTDIvol DATA REPOSITORY: All CT scans at this facility are submitted to the National Radiology Data Registry (NRDR) Dose Index Registry (DIR) with the [employer] ([employer]). RADIATION OPTIMIZATION: All CT scans at this facility use at least one of these dose optimization te chniques: automated exposure control; mA and/or kV adjustment per patient size (includes targeted exa ms where dose is matched to clinical indication); or iterative reconstruction.
[2021-09-06] MEDS: Potassium Chloride 20 MEQ TABCR 40 MEQ PO ×2 (11:43→17:39)
[2021-09-06 12:00] LABS: Source Nasal/Nares
[2021-09-06 12:55] LABS: COVID-19 PCR Positive (Negative)
[2021-09-06 13:30] LABS: C-Reactive Protein 9.64 mg/dL (0.0-0.3)
[2021-09-06 13:54] LABS: Procalcitonin 0.6 ng/mL
--- NOTE | 2021-09-06 14:05 | PHA.REVIEW ---
Pharmacy Admission Review - Admission Clinical Review (Last Reviewed 05/26/21 @ 19:31 by MARY Mak) COVID-19 (Acute) Multifocal pneumonia (Acute) Hypoxia (Acute) On supplemental oxygen therapy (Acute) No Known Allergies Allergy (Verified 09/06/21 09:49) Resuscitation Status Full Code Height 6 ft 1 in Weight 117.934 kg - Renal Dosing Renal Dosing: BUN 28 mg/dL (7-18) H 09/06/21 10:16 Creatinine 1.4 mg/dL (0.70-1.30) H 09/06/21 10:16 Medications needing adjustments: Reviewed (SCr: 1.4, CrCl:~ 75.5 mL/min using adjusted body weight. All medications dosed appropriately.) - Anticoagulation Anticoagulation: Hgb 16.8 g/dL (13.5-17.5) 09/06/21 10:16 Hct 50.5 % (40.0-50.0) H 09/06/21 10:16 Plt Count 184 10^3/uL (130-400) 09/06/21 10:16 Creatinine 1.4 mg/dL (0.70-1.30) H 09/06/21 10:16 DVT Prophylaxis: Reviewed Medications: Enoxaparin (Enoxaparin 40mg SC Q24H) Therapeutic Anticoagulation: N/A - Opiate Usage Evaluate Pain Scale/Pains Meds: N/A (No opiates ordered, pain was a 2/10 on admission.) Scheduled Bowel Reg ordered if on Opiates?: Yes (Polyethylene glycol sched) - Relevant Labs Sodium 135 mmol/L (136-145) L 09/06/21 10:16 Potassium 3.2 mmol/L (3.5-5.1) L 09/06/21 10:16 Chloride 95 mmol/L (98-107) L 09/06/21 10:16 Magnesium 2.2 mg/dL (1.8-2.4) 09/06/21 10:16 C-Reactive Protein 9.64 mg/dL (0.0-0.3) H 09/06/21 10:16 Electrolytes, C-Reactive P, ESR: Reviewed (Potassium low, PO Potassium replacement ordered.) - DM Control DM Control: Glucose 113 mg/dL (74-106) H 09/06/21 10:16 Insulin Dosing: N/A - Heart Failure/VT Heart Failure/VT: Troponin I < 0.05 ng/mL (<0.06) 09/06/21 10:16 EF%, TAL's, B-Blockers, Diuretics: N/A - BP Control BP Control: Blood Pressure 127/65 Blood Pressure 148/63 Blood Pressure 156/88 Blood Pressure 159/92 Blood Pressure 148/93 Blood Pressure 138/85 Blood Pressure 127/83 Blood Pressure 127/83 If elevated: N/A - Qtc Review If Elevated: N/A (QTc 422 on admission) - IV to PO Switch IV Medications: Intervened (Albuterol directions clarified - now 2 puffs Q4H PRN and changed Famotidine suspension to tablets.) - Home Meds Home Med List reviewed: Reviewed Relevent Home Meds Not ordered & why?: Esomeprazole 40mg daily (Famotidine 20mg BID ordered) - Current meds Current Medication Order Review: Reviewed - Comments Comments/Follow Ups: Continue to monitor labs, potassium, vital signs and changes in medications. Antibiotic Activity - Pharmacy Antibiotic Review Pharmacy Antibiotic Activity: Reviewed, no change (Ceftriaxone and Doxycycline started empirically.)
[2021-09-06] MEDS: REMDESIVIR 200 MG in Normal Saline 250 ML 250 MG IVPB (14:26)
[2021-09-06 14:29] LABS: D-Dimer 858 ng/mlFEU (<500)
[2021-09-06] MEDS: cefTRIAXone 1 GM/50 ML BAG IVPB (15:36)
[2021-09-06] MEDS: Normal Saline Flush 10 ML SYR IVP ×2 (15:37→19:41)
[2021-09-06] MEDS: Enoxaparin 40 MG/0.4 ML SYR SC (16:49)
[2021-09-06] MEDS: Famotidine 20 MG TAB PO (19:40)
[2021-09-06] MEDS: Doxycycline Hyclate 100 MG CAP PO (19:40)
[2021-09-06] MEDS: Ascorbic Acid 500 MG TAB 1000 MG PO (19:40)
[2021-09-06] MEDS: Potassium Chloride 20 MEQ TABCR PO (19:40)
[2021-09-06] MEDS: Acetaminophen 325 MG TAB PO (20:33)
--- NOTE | 2021-09-06 20:42 | HPE_ITS ---
Date of service: 09/06/21 Time of Service: 17:35 Assessment and Plan Assessment and plan (1) COVID-19: Status: Acute Assessment and plan: Dexamethasone and Remdesivir scheduled. Continuous O2 monitoring. Requiring supplemental O2 per NC at 1L. Vit D and C supplementation. Albuterol prn. Encourage proning and if unable or unwilling, side to side. IS. Trend inflammatory markers. (2) Multifocal pneumonia: Status: Acute Assessment and plan: Given procal of 0.8 and mildly elevated WBC count, there is a concern for a superimposed bacterial pneumonia. Rocephin and doxycycline initiated. (3) Adjustment disorder with depressed mood: Status: Acute Assessment and plan: Currently on no medications for this dx. Monitor for anxiety/depression. (4) Hyperlipidemia: Status: Chronic Assessment and plan: Not on any lipid lowering medications (5) Obstructive sleep apnea: Status: Acute Assessment and plan: Uses BiPAP at night (6) HTN (hypertension): Status: Chronic Assessment and plan: Cont HCTZ and trend. Controlled. History of Present Illness History of Present Illness Chief Complaint: Shortness of breath and cough Narrative: This is a 60 yo male with a PMH of HTN, GERD, BPH, adjustment d.o./depressed mood, Obesity, HLD, KATHE. He was dxd with COVID-19 three days prior to presentation to the ED. He is unvaccinated. COVID test positive 3 days prior to admission. He received mAb infusion as an outpt the day prior to admission. On arrival his RA O2 saturation was 88%. He endorsed saturations in the 80's at home. He was noted to have a frequent cough with diffuse wheezing and rhonchi. He denied fevers. No CP. WBC count 11. K 3.2. Troponin negative. CTchest with multifocal bilateral pneumonia. No pulmonary emboli. He was given IV solu-medrol, IV fluids and Duoneb administration. Admitted for further treatment. Review of Systems All systems reviewed & are unremarkable except as noted in HPI and below [facility] Active Problem List COVID-19 (Acute) Multifocal pneumonia (Acute) Hypoxia (Acute) On supplemental oxygen therapy (Acute) SARS-CoV-2 positive (Acute) Gout attack (Acute) IFG (impaired fasting glucose) (Acute) Papule (Acute) Adjustment disorder with depressed mood (Acute 01/23/11) BMI 38.0-38.9,adult (Acute 01/01/15) Raza's esophagus (Acute 06/11/09) History of kidney stones (Acute 06/13/16) Hyperlipidemia (Chronic 12/22/05) Low back pain (Acute 08/22/13) Microscopic hematuria (Acute 06/13/16) Obstructive sleep apnea (Acute 05/04/14) Onychomycosis (Acute 02/05/14) Unstable angina (Acute 06/19/17) Diarrhea (Acute) HTN (hypertension) (Chronic) Medical History Barretts esophagus BPH (benign prostatic hyperplasia) Essential hypertension GERD (gastroesophageal reflux disease) History of cardiac catheterization KATHE (obstructive sleep apnea) on bipap Surgical History Appendectomy Arthroplasty of knee right Cardiac Catheterization Cholecystectomy (10/31/17) Colonoscopy - MAC EGD - MAC Repair, Tendon or Muscle Rotator Cuff Repair (11/20/16) Dr Harman R repair and tenodesis long head of R biceps S/P cholecystectomy Spinal Surgery Family History Father Essential hypertension Heart disease Hyperlipidemia Myocardial infarction Grandmother Diabetes Social History Smoking/Tobacco Use Status: Never Smoking risk assessment performed?: Yes Alcohol Intake: never Drug use: Never Substance use type: does not use Adopted: No Caregiver/Support person: No Foster care: No Number of Children: 4 Communication Needs: None Do you need help understanding health information?: Rarely 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 Current gender identity: male What type of physical activity do you participate in: none Do you feel safe at home: Yes Do you feel safe in your relationship?: Yes Meds Allergies and Home Medications Allergies Allergy/AdvReac Type Severity Reaction Status Date / Time No Known Allergies Allergy Verified 09/06/21 09:49 Home Medications Medication Instructions Recorded Confirmed Type esomeprazole magnesium 40 mg 40 mg PO DAILY #90 tab-cap 12/13/20 09/06/21 Rx capsule,delayed release hydrochlorothiazide 25 mg tablet 25 mg PO DAILY #90 tab 03/01/21 11/23/21 Rx tamsulosin 0.4 mg capsule 0.4 mg PO DAILY #90 tab-cap 12/13/20 09/06/21 Rx acetaminophen [Tylenol] 650 mg PO Q6H PRN #0 tab 05/26/21 09/06/21 Rx albuterol sulfate 90 mcg/actuation 1 - 2 puff INHALATION Q4H PRN #8.5 09/05/21 09/06/21 Rx aerosol inhaler g ibuprofen 600 mg tablet 600 mg PO TID PRN #30 tab 09/05/21 09/06/21 Rx Exam Narrative Exam Narrative: Lying supine. Conversational. Const General: cooperative and no acute distress Nutritional Appearance: obese Orientation: alert and oriented x3 HENMT Head: atraumatic Ears: hearing grossly normal bilaterally Neck Neck: full ROM and no JVD Resp Effort & Inspection: normal respiratory effort Auscultation: rhonchi (Faint) Cardio Rate: regular rate Rhythm: regular rhythm Heart Sounds: S1 normal and S2 normal Skin General skin exam: no rashes or lesions noted Neuro General: no focal motor deficits Cognition: normal cognition Speech: speech normal Sensory Exam: no sensory deficits noted Extrem General: no pedal edema and no calf tenderness Psych Appearance: grossly normal Speech and Movement: speech and movement normal Mood: congruent mood Affect: normal affect Results Labs Result diagrams: 09/07/21 07:20 09/07/21 07:20 Labs: Laboratory Results - last 24 hr 09/06/21 09/06/21 09/06/21 10:15 10:16 10:16 WBC 11.20 H RBC 5.76 Hgb 16.8 Hct 50.5 H MCV 87.7 MCH 29.2 MCHC 33.3 RDW 13.1 Plt Count 184 MPV 9.4 Immature Gran % 0.8 Neutrophils % 84.1 Lymphocytes % 11.9 Monocytes % 2.9 Eosinophils % 0.0 Basophils % 0.3 Nucleated RBC % 0 Absolute Neutrophils 9.42 H Absolute Lymphocytes 1.33 Absolute Monocytes 0.32 Absolute Eosinophils 0.00 Absolute Basophils 0.03 D-Dimer Sodium 135 L Potassium 3.2 L Chloride 95 L Carbon Dioxide 31.9 Anion Gap 8.1 BUN 28 H Creatinine 1.4 H Estimated GFR/1.73 m2 51.69 Glucose 113 H Calcium 8.6 Magnesium 2.2 Total Bilirubin 0.7 AST 55 H ALT 38 Alkaline Phosphatase 65 Troponin I < 0.05 C-Reactive Protein 9.64 H Total Protein 8.0 Albumin 3.6 Procalcitonin 0.6 COVID-19 Source SARS-CoV-2 (PCR) 09/06/21 09/06/21 11:55 13:41 WBC RBC Hgb Hct MCV MCH MCHC RDW Plt Count MPV Immature Gran % Neutrophils % Lymphocytes % Monocytes % Eosinophils % Basophils % Nucleated RBC % Absolute Neutrophils Absolute Lymphocytes Absolute Monocytes Absolute Eosinophils Absolute Basophils D-Dimer 858 H Sodium Potassium Chloride Carbon Dioxide Anion Gap BUN Creatinine Estimated GFR/1.73 m2 Glucose Calcium Magnesium Total Bilirubin AST ALT Alkaline Phosphatase Troponin I C-Reactive Protein Total Protein Albumin Procalcitonin COVID-19 Source Nasal/Nares SARS-CoV-2 (PCR) Positive A* Last Vital Signs Temp 37.5 C 09/06/21 20:39 Pulse 75 09/06/21 20:39 Resp 20 09/06/21 20:39 BP 126/85 09/06/21 20:39 Pulse Ox 90 L 09/06/21 15:58
[2021-09-07] VITALS (11 sets, daily range): BP systolic 115–125; BP diastolic 84–88; PULSE 61–78; RESP 20–28; TEMP 36.6–36.9; O2SAT 90–95
[2021-09-07] MEDS: Normal Saline Flush 10 ML SYR IVP (07:26)
[2021-09-07] MEDS: Ascorbic Acid 500 MG TAB 1000 MG PO ×2 (07:26→20:49)
[2021-09-07] MEDS: Doxycycline Hyclate 100 MG CAP PO ×2 (07:26→20:49)
[2021-09-07] MEDS: Acetaminophen 325 MG TAB PO (07:26)
[2021-09-07] MEDS: Potassium Chloride 20 MEQ TABCR PO ×2 (07:26→20:50)
[2021-09-07] MEDS: Famotidine 20 MG TAB PO ×2 (07:26→20:49)
[2021-09-07 07:38] LABS: Abs Immature Grans 0.07 10^3/uL (0.0-0.06); Absolute Basophil Count 0.01 10^3/uL (0.0-0.2); Absolute Monocyte Count 0.59 10^3/uL (0.1-0.8); Absolute Neutrophil Count 7.75 10^3/uL (1.2-6.7); Basophils % 0.1; HCT 45.2 % (40.0-50.0); Immature Grans % 0.7; Lymphocytes % 13.4; MCH 28.9 pg (27.0-33.0); MCHC 33.2 % (32.0-36.0); MCV 87.1 fL (80-95); MPV 9.5 fL (8.0-11.0); Monocytes % 6.1; Neutrophils % 79.7; Nucleated RBC 0 %; Platelet Count 171 10^3/uL (130-400); RBC 5.19 10^6/uL (4.36-5.78); RDW 12.8 % (11.8-14.1); RDW-SD 40.9 fL; WBC 9.72 10^3/uL (4.4-10.8)
[2021-09-07 07:55] LABS: ALT 35 U/L (16-63); AST 40 U/L (15-37); Albumin 2.8 g/dL (3.4-5.0); Alkaline Phosphatase 49 U/L (46-116); Anion Gap 9.3 mmol/L (3-11); BUN 24 mg/dL (7-18); Bilirubin, Total 0.5 mg/dL (0.2-1.0); C-Reactive Protein 9.71 mg/dL (0.0-0.3); CO2 28.7 mmol/L (21.0-32.0); CREATININE 0.9 mg/dL (0.70-1.30); Calcium 8.3 mg/dL (8.5-10.1); Chloride 103 mmol/L (98-107); Glucose 122 mg/dL (74-106); Potassium 3.8 mmol/L (3.5-5.1); Sodium 141 mmol/L (136-145); Total Protein 6.7 g/dL (6.4-8.2)
[2021-09-07 08:09] LABS: D-Dimer 841 ng/mlFEU (<500)
[2021-09-07] MEDS: Cholecalciferol (Vitamin D3) 1,000 UNIT TAB 2000 UNITS PO (08:11)
[2021-09-07] MEDS: Dexamethasone 10 MG/ML VIAL 6 MG IVP (08:11)
[2021-09-07] MEDS: hydroCHLOROthiazide 25 MG TAB PO (08:11)
[2021-09-07] MEDS: Tamsulosin 0.4 MG CAPCR PO (08:11)
--- NOTE | 2021-09-07 09:54 | PDOC.CMIN ---
- If Service Date Differs Date of service: 09/07/21 Time of Service: 09:54 Care Management Initial Assess REASON FOR HOSPITALIZATION:: Covid Pneumonia PAST MEDICAL HISTORY/PAST SURGICAL HISTORY:: Medical History . Barretts esophagus. BPH (benign prostatic hyperplasia). Essential hypertension. GERD (gastroesophageal reflux disease). History of cardiac catheterization. KATHE (obstructive sleep apnea). on bipap. Surgical History . Appendectomy. Arthroplasty of knee. right. Cardiac Catheterization. Cholecystectomy (10/31/17). Colonoscopy - MAC. EGD - MAC. Repair, Tendon or Muscle. Rotator Cuff Repair (11/20/16). Dr Harman. R repair and tenodesis long head of R biceps. S/P cholecystectomy. Spinal Surgery PREVIOUS FUNCTIONAL STATUS/SOCIAL/FAMILY SUPPORTS:: Esther lives in [facility] with his . He is self employed, drives and independent at baseline. CURRENT FUNCTIONAL STATUS:: CM met with Esther over the phone due to Covid restrictions. Esther reported that he is feeling slightly better today. He shared with CM that he is self employed and doesn't have health coverage. CM faxed a referral to [employer]. Milena from [employer] is helping patient to determine his eligibility for State vs Commercial insurance, Milena also talked to Amparo from [facility] about financial assistance and to inquire about potential covid related funding. ADVANCE DIRECTIVES:: None on file Has patient been provided with info about the portal/API?: Yes Did the patient sign up for the portal?: No CODE STATUS:: Full Code INSURANCE COVERAGE / FINANCIAL ISSUES:: Self pay. CM connected patient with [employer]. CURRENT HOME/COMMUNITY SERVICES/EQUIPMENT:: None PRIMARY CARE PHYSICIAN:: [place] PATIENT/FAMILY EDUCATION NEEDS:: Review discharge instructions, limitations and plan to follow up with community providers. ask me three. TRANSPORTATION:: Via private vehicle located in parking lot. PLAN:: Anticipate Esther will be discharged home via private vehicle when medically cleared by . RT will continue to assess his need for home O2. Pt will follow up with community providers and discharge plan of care as prescribed.
[2021-09-07] MEDS: cefTRIAXone 1 GM/50 ML BAG IVPB (13:40)
[2021-09-07] MEDS: Enoxaparin 40 MG/0.4 ML SYR SC (15:45)
--- NOTE | 2021-09-07 16:01 | W.PM.PROGNOT ---
Date of Service Date of service: 09/07/21 Time of Service: 16:01 Assessment and Plan Assessment and plan (1) COVID-19: Status: Acute Assessment and plan: Now requiring 4L supplemental O2 per NC with O2 sats in the low 90's. Dexamethasone and Remdesivir scheduled. Continuous O2 monitoring. Requiring supplemental O2 per NC at 1L. Vit D and C supplementation. Albuterol prn. Encourage proning and if unable or unwilling, side to side. IS. Trend inflammatory markers; d-dimer and CRP essentially unchanged. C (2) Multifocal pneumonia: Status: Acute Assessment and plan: Given procal of 0.6 and mildly elevated WBC count, there is a concern for a superimposed bacterial pneumonia. Rocephin and doxycycline initiated. Procal in AM (3) Adjustment disorder with depressed mood: Status: Acute Assessment and plan: Currently on no medications for this dx. Monitor for anxiety/depression. (4) Hyperlipidemia: Status: Chronic Assessment and plan: Not on any lipid lowering medications Initiate atorvastain if oxygen status worsens. (5) Obstructive sleep apnea: Status: Acute Assessment and plan: Uses BiPAP at night (6) HTN (hypertension): Status: Chronic Assessment and plan: Cont HCTZ and trend. Controlled. Subjective Subjective Patient reports: tolerating a regular diet, shortness of breath and afebrile; denies nausea and vomiting Interval history since last seen: Feels no different than yesterday. Cough / dry. No CP. Exam Narrative Exam Narrative: Lying supine. Conversational / hoarse quality to voice Const General: cooperative and no acute distress Nutritional Appearance: obese Orientation: alert and oriented x3 HENMT Head: atraumatic Ears: hearing grossly normal bilaterally Neck Neck: full ROM and no JVD Resp Effort & Inspection: normal respiratory effort Auscultation: rhonchi (Faint) Cardio Rate: regular rate Rhythm: regular rhythm Heart Sounds: S1 normal and S2 normal Skin General skin exam: no rashes or lesions noted Neuro General: no focal motor deficits Cognition: normal cognition Speech: speech normal Sensory Exam: no sensory deficits noted Extrem General: no pedal edema and no calf tenderness Psych Appearance: grossly normal Speech and Movement: speech and movement normal Mood: congruent mood Affect: normal affect Objective Last Vital Signs Temp 36.6 C 09/07/21 15:48 Pulse 66 09/07/21 15:48 Resp 28 H 09/07/21 15:48 BP 119/84 09/07/21 12:07 Pulse Ox 90 L 09/07/21 15:48 Laboratory Results - last 24 hr 09/07/21 09/07/21 09/07/21 07:20 07:20 07:20 WBC 9.72 RBC 5.19 Hgb 15.0 Hct 45.2 MCV 87.1 MCH 28.9 MCHC 33.2 RDW 12.8 Plt Count 171 MPV 9.5 Immature Gran % 0.7 Neutrophils % 79.7 Lymphocytes % 13.4 Monocytes % 6.1 Eosinophils % 0.0 Basophils % 0.1 Nucleated RBC % 0 Absolute Neutrophils 7.75 H Absolute Lymphocytes 1.30 Absolute Monocytes 0.59 Absolute Eosinophils 0.00 Absolute Basophils 0.01 D-Dimer 841 H Sodium 141 Potassium 3.8 Chloride 103 Carbon Dioxide 28.7 Anion Gap 9.3 BUN 24 H Creatinine 0.9 D Estimated GFR/1.73 m2 >= 60.00 Glucose 122 H Calcium 8.3 L Total Bilirubin 0.5 AST 40 H ALT 35 Alkaline Phosphatase 49 C-Reactive Protein 9.71 H Total Protein 6.7 Albumin 2.8 L
[2021-09-07] MEDS: guaiFENesin/CODEINE PHOSPHATE 10 ML CUP PO (16:46)
[2021-09-08] VITALS (10 sets, daily range): BP systolic 113–136; BP diastolic 65–89; PULSE 54–79; RESP 12–20; TEMP 36–37; O2SAT 91–93
[2021-09-08] MEDS: guaiFENesin/CODEINE PHOSPHATE 10 ML CUP PO ×2 (01:50→06:00)
[2021-09-08] MEDS: Dexamethasone 10 MG/ML VIAL 6 MG IVP (08:34)
[2021-09-08] MEDS: Cholecalciferol (Vitamin D3) 1,000 UNIT TAB 2000 UNITS PO (08:34)
[2021-09-08] MEDS: Ascorbic Acid 500 MG TAB 1000 MG PO ×2 (08:34→20:34)
[2021-09-08] MEDS: Famotidine 20 MG TAB PO ×2 (08:35→20:34)
[2021-09-08] MEDS: Doxycycline Hyclate 100 MG CAP PO ×2 (08:35→20:34)
[2021-09-08] MEDS: hydroCHLOROthiazide 25 MG TAB PO (08:35)
[2021-09-08] MEDS: Tamsulosin 0.4 MG CAPCR PO (08:36)
[2021-09-08] MEDS: Potassium Chloride 20 MEQ TABCR PO ×2 (08:36→20:34)
[2021-09-08] MEDS: Polyethylene Glycol 3350 17 GM PACKET PO (08:36)
[2021-09-08] MEDS: Normal Saline Flush 10 ML SYR IVP (08:42)
[2021-09-08 08:47] LABS: C-Reactive Protein 4.39 mg/dL (0.0-0.3)
[2021-09-08 09:31] LABS: D-Dimer 634 ng/mlFEU (<500)
[2021-09-08 10:52] LABS: Procalcitonin 0.2 ng/mL
[2021-09-08] MEDS: cefTRIAXone 1 GM/50 ML BAG IVPB (14:40)
--- NOTE | 2021-09-08 15:01 | W.PM.PROGNOT ---
Date of Service Date of service: 09/08/21 Time of Service: 15:01 Assessment and Plan Assessment and plan (1) COVID-19: Status: Acute Assessment and plan: Has been on RA all day with O2 saturations in the low 90's. Dexamethasone and Remdesivir scheduled. Continuous O2 monitoring. Requiring supplemental O2 per NC at 1L. Vit D and C supplementation. Albuterol prn. Encourage proning and if unable or unwilling, side to side. IS. Trend inflammatory markers; d-dimer and CRP now trending down. If still doing well on RA, plan to d/c tomorrow. (2) Multifocal pneumonia: Status: Acute Assessment and plan: Given procal of 0.6 and mildly elevated WBC count, there is a concern for a superimposed bacterial pneumonia. Rocephin and doxycycline initiated. Procal decreased to 0.2. (3) Adjustment disorder with depressed mood: Status: Acute Assessment and plan: Currently on no medications for this dx. Monitor for anxiety/depression. (4) Hyperlipidemia: Status: Chronic Assessment and plan: Not on any lipid lowering medications Initiate atorvastain if oxygen status worsens. (5) Obstructive sleep apnea: Status: Acute Assessment and plan: Uses BiPAP at night (6) HTN (hypertension): Status: Chronic Assessment and plan: Cont HCTZ and trend. Controlled. Subjective Subjective Patient reports: no new complaints, feels better, tolerating a regular diet, shortness of breath (mild with exertion.) and afebrile; denies nausea and vomiting Interval history since last seen: Cough is improving. Exam Narrative Exam Narrative: Lying supine. Conversational / hoarse quality to voice Const General: cooperative and no acute distress Nutritional Appearance: obese Orientation: alert and oriented x3 HENMT Head: atraumatic Ears: hearing grossly normal bilaterally Neck Neck: full ROM and no JVD Resp Effort & Inspection: normal respiratory effort Auscultation: rhonchi (Faint) Cardio Rate: regular rate Rhythm: regular rhythm Heart Sounds: S1 normal and S2 normal Skin General skin exam: no rashes or lesions noted Neuro General: no focal motor deficits Cognition: normal cognition Speech: speech normal Sensory Exam: no sensory deficits noted Extrem General: no pedal edema and no calf tenderness Psych Appearance: grossly normal Speech and Movement: speech and movement normal Mood: congruent mood Affect: normal affect Objective Last Vital Signs Temp 36.8 C 09/08/21 14:45 Pulse 74 09/08/21 14:45 Resp 14 09/08/21 14:45 BP 123/65 09/08/21 14:45 Pulse Ox 91 L 09/08/21 14:45 Laboratory Results - last 24 hr 09/08/21 09/08/21 09/08/21 07:20 07:20 07:20 D-Dimer 634 H C-Reactive Protein 4.39 H Procalcitonin 0.2
[2021-09-08] MEDS: Enoxaparin 40 MG/0.4 ML SYR SC (15:20)
[2021-09-09 00:22] VITALS: BP 126/83; PULSE 63; RESP 20; TEMP 36.4; O2SAT 94
[2021-09-09 07:04] VITALS: PULSE 75
--- NOTE | 2021-09-09 07:19 | DSE_ITS ---
Date of service: 09/09/21 Time of Service: 07:19 DS: Diagnosis Discharge Diagnosis (1) COVID-19: Status: Acute (2) Multifocal pneumonia: Status: Acute (3) Adjustment disorder with depressed mood: Status: Acute (4) Hyperlipidemia: Status: Chronic (5) Obstructive sleep apnea: Status: Acute (6) HTN (hypertension): Status: Chronic Discharge Plan Disposition Patient Disposition: HOME Condition: Improving Discharge Details Reason For Visit: Covid Pneumonia Admit Date/Time: 09/06/21 12:46 Admit Provider: Geovanny Gallardo Attending Provider: Geovanny Gallardo Primary Care Provider: [facility] Hospital Course: This is a 60 yo male with a PMH of HTN, GERD, BPH, adjustment d.o./depressed mood, Obesity, HLD, KATHE. He was dxd with COVID-19 three days prior to presentation to the ED. He is unvaccinated. COVID test positive 3 days prior to admission. He received mAb infusion as an outpt the day prior to admission. On arrival his RA O2 saturation was 88%. He endorsed saturations in the 80's at home. He was noted to have a frequent cough with diffuse wheezing and rhonchi. He denied fevers. No CP. WBC count 11.2. K 3.2. Troponin negative. CTchest with multifocal bilateral pneumonia. No pulmonary emboli. He was given IV solu-medrol, IV fluids and Duoneb administration. Admitted for further treatment. COVID-19 treatment consisted of dexamethasone and Remdesivir. Given an elevated procalcitonin of 0.6 a superimposed bacterial pneumonia was suspected and Rocephin and Doxycycline initiated. He initially required no supplemental O2 after admission, but then required 1L > 3L > 4L to maintain O2 saturations above 90%. The day prior to d/c and the day of d/c he was able to maintain saturat ions adequately on RA. He will d/c with prescriptions for doxycycline and Augmentin for 5 days each and prednisone 40mg for 3 days. He would benefit from continued Vit C and D supplementation. Encouraged to reconsider COVID-19 immunization. We discussed the options of vaccines, natural immunity after a COVID-19 infection. F/U with PCP in 1 week. Home Meds and New Rx's Prescriptions: New doxycycline hyclate 100 mg Capsule 100 mg PO BID Qty: 10 RF: 0 ascorbic acid (vitamin C) [Vitamin C] 500 mg Tablet 1,000 mg PO BID Qty: 0 RF: 0 cholecalciferol (vitamin D3) 25 mcg (1,000 unit) Tablet 2,000 units PO DAILY Qty: 0 RF: 0 amoxicillin-pot clavulanate 875-125 mg tablet 1 tab PO BID Qty: 10 RF: 0 prednisone 20 mg tablet 40 mg PO DAILY Qty: 6 RF: 0 codeine-guaifenesin 10-200 mg/5 mL liquid 5 ml PO Q6H PRN (Reason: cough) Qty: 473 RF: 0 Continued albuterol sulfate [Proventil HFA] 90 mcg/actuation HFA aerosol inhaler 1 - 2 puff inhalation Q4H PRN (Reason: shortness of breath or wheezing) Qty: 8.5 RF: 1 ibuprofen 600 mg tablet 600 mg PO TID PRN (Reason: pain) Qty: 30 RF: 0 esomeprazole magnesium [Nexium] 40 mg capsule,delayed release(DR/EC) 40 mg PO DAILY Qty: 90 RF: 3 hydrochlorothiazide 25 mg tablet 25 mg PO DAILY Qty: 90 RF: 3 tamsulosin [Flomax] 0.4 mg capsule 0.4 mg PO DAILY Qty: 90 RF: 3 acetaminophen [Tylenol] 325 MG tablet 650 mg PO Q6H PRNQty: 0 RF: 0 Discharge Instructions Activity:: Activity as Tolerated Equipment/Supplies:: No Equipment Needed Diet:: Heart Healthy diet encouraged Discharge Orders Discharge Orders: Discharge Order (Routine); Ordered 09/09/21 Ordered By: Geovanny Gallardo DS: Summary Time Spent with Patient providing and/or coordinating discharge services: Greater than 30 minutes Status at Discharge Functional status at discharge: independent ambulation Overall status at discharge: patient is progressing back to baseline Mental Status: mental status grossly normal Speech and Movement: speech and movement normal Mood: congruent mood Affect: normal affect Exam Narrative Exam Narrative: Lying supine. Conversational / hoarse quality to voice Const General: cooperative and no acute distress Nutritional Appearance: obese Orientation: alert and oriented x3 HENMT Head: atraumatic Ears: hearing grossly normal bilaterally Neck Neck: full ROM and no JVD Resp Effort & Inspection: normal respiratory effort Auscultation: rhonchi (Faint) Cardio Rate: regular rate Rhythm: regular rhythm Heart Sounds: S1 normal and S2 normal Skin General skin exam: no rashes or lesions noted Neuro General: no focal motor deficits Cognition: normal cognition Speech: speech normal Sensory Exam: no sensory deficits noted Extrem General: no pedal edema and no calf tenderness Psych Appearance: grossly normal Mental Status: mental status grossly normal Speech and Movement: speech and movement normal Mood: congruent mood Affect: normal affect DS: Data Vitals/I&O Vitals and I&O: Vital Signs Temperature 36.4 C L 09/09/21 00:22 Temperature Source Temporal Artery Scan 09/09/21 00:22 Pulse 63 09/09/21 00:22 Pulse Rhythm Regular 09/09/21 00:30 Pulse 88 09/06/21 12:00 Respiratory Rate 20 09/09/21 00:22 Respiratory Effort 09/09/21 00:30 Respiratory Depth Normal 09/09/21 00:30 Respiratory Pattern Normal 09/09/21 00:30 Blood Pressure 126/83 09/09/21 00:22 Blood Pressure Mean 80 09/06/21 11:16 Blood Pressure Position Supine 09/06/21 09:41 Pulse Oximetry 94 09/09/21 00:22 Oxygen Delivery Method Room Air 09/09/21 00:22 Oxygen Flow Rate 0 09/09/21 00:22 Pain Level 0 09/09/21 00:22 Comment 09/07/21 07:32 Intake & Output 09/08/21 09/08/21 09/09/21 11:59 23:59 11:59 Intake Total 300 / 300 Output Total 350 / 350 200 / 200 Balance -50 / -50 -200 / -200 Intake: Oral 300 / 300 Output: Urine 350 / 350 200 / 200 Other: Urine Color Yellow Light Erica Urine Appearance Clear Clear Voiding Methods Toilet Toilet Data Completed and Pending Labs on day of discharge: Labs from last 24 hours 09/09/21 09/09/21 09/09/21 05:35 05:35 05:25 WBC Pending RBC Pending Hgb Pending Hct Pending MCV Pending MCH Pending MCHC Pending RDW Pending Plt Count Pending MPV Pending D-Dimer Pending C-Reactive Protein Pending Procalcitonin 09/08/21 09/08/21 09/08/21 07:20 07:20 07:20 WBC RBC Hgb Hct MCV MCH MCHC RDW Plt Count MPV D-Dimer 634 H C-Reactive Protein 4.39 H Procalcitonin 0.2 PFSH Active Problem List COVID-19 (Acute) Multifocal pneumonia (Acute) Hypoxia (Acute) On supplemental oxygen therapy (Acute) SARS-CoV-2 positive (Acute) Gout attack (Acute) IFG (impaired fasting glucose) (Acute) Papule (Acute) Adjustment disorder with depressed mood (Acute 01/23/11) BMI 38.0-38.9,adult (Acute 01/01/15) Raza's esophagus (Acute 06/11/09) History of kidney stones (Acute 06/13/16) Hyperlipidemia (Chronic 12/22/05) Low back pain (Acute 08/22/13) Microscopic hematuria (Acute 06/13/16) Obstructive sleep apnea (Acute 05/04/14) Onychomycosis (Acute 02/05/14) Unstable angina (Acute 06/19/17) Diarrhea (Acute) HTN (hypertension) (Chronic) Medical History Barretts esophagus BPH (benign prostatic hyperplasia) Essential hypertension GERD (gastroesophageal reflux disease) History of cardiac catheterization KATHE (obstructive sleep apnea) on bipap Surgical History Appendectomy Arthroplasty of knee right Cardiac Catheterization Cholecystectomy (10/31/17) Colonoscopy - MAC EGD - MAC Repair, Tendon or Muscle Rotator Cuff Repair (11/20/16) Dr Harman R repair and tenodesis long head of R biceps S/P cholecystectomy Spinal Surgery Family History Father Essential hypertension Heart disease Hyperlipidemia Myocardial infarction Grandmother Diabetes Social History Smoking/Tobacco Use Status: Never Smoking risk assessment performed?: Yes Alcohol Intake: never Drug use: Never Substance use type: does not use Adopted: No Caregiver/Support person: No Foster care: No Number of Children: 4 Communication Needs: None Do you need help understanding health information?: Rarely 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
[2021-09-09 07:39] LABS: HCT 46.2 % (40.0-50.0); HGB 15.2 g/dL (13.5-17.5); MCH 28.7 pg (27.0-33.0); MCHC 32.9 % (32.0-36.0); MCV 87.2 fL (80-95); MPV 9.5 fL (8.0-11.0); Platelet Count 234 10^3/uL (130-400); RDW 12.4 % (11.8-14.1); RDW-SD 39.7 fL; WBC 7.68 10^3/uL (4.4-10.8)
[2021-09-09 08:02] LABS: C-Reactive Protein 2.48 mg/dL (0.0-0.3)
[2021-09-09] MEDS: Ascorbic Acid 500 MG TAB 1000 MG PO (08:03)
[2021-09-09] MEDS: Doxycycline Hyclate 100 MG CAP PO (08:03)
[2021-09-09] MEDS: Famotidine 20 MG TAB PO (08:03)
[2021-09-09] MEDS: Cholecalciferol (Vitamin D3) 1,000 UNIT TAB 2000 UNITS PO (08:03)
[2021-09-09] MEDS: Dexamethasone 10 MG/ML VIAL 6 MG IVP (08:03)
[2021-09-09] MEDS: hydroCHLOROthiazide 25 MG TAB PO (08:04)
[2021-09-09] MEDS: Polyethylene Glycol 3350 17 GM PACKET PO (08:04)
[2021-09-09] MEDS: Tamsulosin 0.4 MG CAPCR PO (08:04)
[2021-09-09] MEDS: Potassium Chloride 20 MEQ TABCR PO (08:04)
[2021-09-09 08:18] VITALS: BP 132/82; PULSE 74; RESP 12; TEMP 36.2; O2SAT 92
[2021-09-09 08:21] LABS: D-Dimer 473 ng/mlFEU (<500)
--- NOTE | 2021-09-09 09:37 | PDOC.CMDIS ---
- If Service Date Differs Date of service: 09/09/21 Time of Service: 09:37 LACE Index Scoring Tool - Questions: Length of Stay (in days): 3 Acuity (Admit via E.D.?): Yes E.D. Visits: 2 - Answers: Total Score: 8 Risk of Readmission: Low Risk Care Management Discharge Reason for Hospitalization: Covid Pneumonia Discharge Plan: Esther is discharged home with no new services. He will follow up with his PCP and discharge plan of care as instructed. Esther is transported home by family via private vehicle. Patient/Family Education Needs: Review discharge instructions including limitations and follow up plan of care, discuss Ask Me Three and self management.
[2021-09-09 10:02] VITALS: PULSE 96
== END 2021-09-09 10:26 | disposition home or self-care (01) | DRG 177 ==
LOC: ER 12:50 → MS 13:50
PROVIDERS: Admitting Provider Family Medicine; Emergency Provider Physician Assistant; PCP Nurse Practitioner; Visit Provider Family Medicine
DX: U07.1 COVID-19 (principal); J15.9 Unspecified bacterial pneumonia; F43.21 Adjustment disorder with depressed mood; E78.5 Hyperlipidemia, unspecified; G47.33 Obstructive sleep apnea (adult) (pediatric); I10 Essential (primary) hypertension; M54.50 Low back pain, unspecified; M10.9 Gout, unspecified; E66.9 Obesity, unspecified; Z68.33 Body mass index [BMI] 33.0-33.9, adult; K21.9 Gastro-esophageal reflux disease without esophagitis; N40.0 Benign prostatic hyperplasia without lower urinary tract symptoms
CPT/HCPCS: 36415; 71275; 80053; 84145; 85027; 87635; 93005; 94640; 96361; 96374; 99285; J1650; 83735; 84484; 85025; 85379; 86140; 93010; 99222; 99232; 99233; 99239; J0696; J1100; J2930; J3490; J7620

== ENCOUNTER 2024-08-28 15:51 | Outpatient (CLI) | payer SELFPAY ==
--- NOTE | 2024-08-28 14:55 | DI.RAD_ITS ---
Exam(s) XR WRIST RT COMPLETE EXAM: XR WRIST RT COMPLETE CLINICAL HISTORY: pain. TECHNIQUE: 2D digital imaging was performed. Three views. COMPARISON: No exams were available for comparison FINDINGS: BONES: No acute fracture is present. No bony destructive lesion is seen. JOINTS: The carpal bones are normally aligned. No significant degenerative changes. SOFT TISSUE: Normal. IMPRESSION: Unremarkable radiographs of the right wrist. DATA REPOSITORY: RADIATION DOSE DELIVERED:
== END 2024-08-28 15:52 | disposition home or self-care (01) ==
LOC: DIORS 15:51
PROVIDERS: PCP Nurse Practitioner; Visit Provider Physician Assistant
DX: M25.531 Pain in right wrist (principal)
CPT/HCPCS: 73110

== ENCOUNTER 2024-10-20 15:50 | Outpatient (CLI) | payer OTHER, SELFPAY ==
--- NOTE | 2024-10-20 09:00 | DI.RAD_ITS ---
Exam(s) XR WRIST RT COMPLETE EXAM: XR WRIST RT COMPLETE CLINICAL HISTORY: pain/stiff. TECHNIQUE: 2D digital imaging was performed of the right wrist. Three views were obtained. PA, lat eral and oblique views were obtained. COMPARISON: CR XR WRIST RT COMPLETE from 08/28/2024 FINDINGS: BONES: No acute fracture is present. No bony destructive lesion is seen. JOINTS: The carpal bones are normally aligned. The joint spaces are well maintained. SOFT TISSUE: Normal. IMPRESSION: Unremarkable radiographs of the right wrist. If there is concern for internal derangement, an MRI may be obtained for further evaluation. DATA REPOSITORY: RADIATION DOSE DELIVERED:
== END 2024-10-20 15:51 | disposition home or self-care (01) ==
LOC: DIORS 15:50
PROVIDERS: PCP Nurse Practitioner; Visit Provider Physician Assistant
DX: M17.12 Unilateral primary osteoarthritis, left knee
CPT/HCPCS: 73110

== ENCOUNTER 2025-04-04 13:18 | Emergency (ER) | payer SELFPAY ==
[2025-04-04] VITALS (52 sets, daily range): BP systolic 112–152; BP diastolic 61–89; PULSE 64–88; RESP 9–29; TEMP 36.7; O2SAT 84–98
--- NOTE | 2025-04-04 13:36 | DI.CT_ITS ---
Exam(s) CT ABD AORTA CTA W RUNOFF EXAM: CT ABD AORTA CTA W RUNOFF CLINICAL HISTORY: 1.3k lbs skid steer tool landed his abd, hip/leg. TECHNIQUE: Imaging Protocol: Axial CT angiography was performed with multi- slice acquisition and multi-planar and/or 3D reconstructions. CONTRAST MATERIAL: Intravenous: Omnipaque 350 Contrast volume:200 mL Oral: No COMPARISON: CT CT CHEST PE CTA from 09/06/2021 FINDINGS: Vascular Structures: Abdomen and pelvis: Celiac Shannon/SMA: No evidence of occlusion or significant stenosis. Renal Arteries: No evidence of occlusion or significant stenosis. 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 Aorta: No aneurysm, occlusion or significant stenosis. No dissection. Iliac Arteries: No evidence of occlusion or significant stenosis. Lower extremities: Right: Femoral: No evidence of occlusion or significant stenosis. Deep Femoral Artery: No evidence of occlusion or significant stenosis. Popliteal: No evidence of occlusion or significant stenosis. Infrapopliteal arteries: No evidence of occlusion or significant stenosis. Left: Femoral: No evidence of occlusion or significant stenosis. Deep femoral artery: No evidence of occlusion or significant stenosis. Popliteal: No evidence of occlusion or significant stenosis. Infrapopliteal arteries: No evidence of occlusion or significant stenosis. Soft tissues: Unremarkable. Bones: No acute fracture or dislocation. IMPRESSION: 1. Normal CT Angiogram of the Abdomen, Pelvis and Lower Extremities. No evidence of active bleeding or dissection. 2. Please refer to the CT scan of the chest, abdomen and pelvis for further details. 3. The preliminary [facility] report was reviewed. RADIATION DOSE DELIVERED: 2,201.29mGy.cm Total DLP 2,201.29mGy.cm Total DLP DATA REPOSITORY: All CT scans at this facility are submitted to the National Radiology Data Registry (NRDR) Dose Index Registry (DIR) with the [employer] (A[employer]). RADIATION OPTIMIZATION: All CT scans at this facility use at least one of these dose optimization techniques: automated exposure control; mA and/or kV adjustment per patient size (includes targeted exams where dose is matched to clinical indication); or iterative reconstruction.
--- NOTE | 2025-04-04 13:41 | W.ED.GENAD ---
Discharge Plan Disposition Patient Disposition: Home Condition: Good Discharge Details Clinical Impression: Trauma, Crush injury, Right knee sprain Primary Care Provider: Chayo Hill ED Provider: Avni Sexton Home Meds and New Rx's Prescriptions: No Action ibuprofen 600 mg tablet 600 mg PO TID PRN (Reason: pain) Qty: 30 0RF Rx Instructions: Rib pain from coughing; take with food & Nexium (RX) acetaminophen 325 mg tablet See Rx Instructions PO Q6H PRN Rx Instructions: 3 tablets orally every 6 hours PRN; esomeprazole magnesium 40 mg capsule,delayed release(DR/EC) See Rx Instructions .ROUTE .COMPLEX Qty: 90 3RF Dose Instruction: TAKE ONE CAPSULE BY MOUTH EVERY DAY Rx Instructions: TAKE ONE CAPSULE BY MOUTH EVERY DAY hydrochlorothiazide 25 mg tablet 25 mg PO DAILY Qty: 90 3RF tamsulosin [Flomax] 0.4 mg capsule 0.8 mg PO DAILY Qty: 180 3RF Discharge Instructions Instructions: Knee Sprain ED Additional Instructions: At this time after your injury I am concerned that you have a notable ligamentous or meniscal injury to your right knee. Please keep your bilateral knee braces on whenever ambulating. Remain nonweightbearing on your right knee. Use crutches to maintain nonweightbearing status. Please take Tylenol and Motrin as needed for pain. Ice your knee frequently. Please keep your legs elevated as often as you can for the next few days to help with the swelling. Please do not let your knees or legs hanging down for prolonged periods over the next week as this could potentially lead to blood clots especially after your injury. You will be contacted by our workers compensation specialist for follow-up appointment this week. If you notice any worsening of your symptoms, or any new symptoms such as vomiting, diarrhea, fever, chills, shortness of breath, chest pain, numbness, weakness, or fainting , please return immediately to the emergency department for reevaluation. Please follow up with your primary care provider as soon as possible for reassessment and reevaluation. As always, it was a pleasure participating in your medical care today. Referrals: Willy Chambers MD [ [facility] STAFF PHYSICIAN, Orthopaedic Surgical] Chayo Hill NP [Primary Care Provider, Medicine] HPI General Date/Time Provider Initiated Documentation: 06/21/25 13:39. HPI Narrative: This is a pleasant 64-year-old male with a past medical history of hypertension, high cholesterol, kidney stones, prostatic hypertrophy, who presents today for evaluation after trauma. 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 It hit him around the buttock, and then pinned him underneath, with compression on buttock, hip, calves and legs bilaterally. Patient had a brief loss of consciousness, and it subsequently took multiple men to get the device off after being on him for about 30 seconds. He was subsequently brought in by EMS for evaluation. He complains of notable pain in his hips bilaterally, abdomen, and bilateral legs, particularly notable pain and burning in the left calf, pain in his right toes and knee and hip, and pain in his left lateral knee. He denies hitting his head. He has no other complaints at this time. He denies any blood thinner use. He did have a laparoscopic surgery on his right knee on the ACL in the distant past by Dr. Jurado. He denies any other orthopedic surgeries. Related Data Home Medications ?Medication ?Instructions ?Recorded ?Confirmed ibuprofen 600 mg tablet 600 mg PO TID PRN pain #30 tabs 09/05/21 04/04/25 acetaminophen 325 mg tablet See Rx Instructions PO Q6H PRN 07/31/24 04/04/25 esomeprazole magnesium 40 mg See Rx Instructions .Route 04/02/25 04/04/25 capsule,delayed release .COMPLEX #90 caps hydrochlorothiazide 25 mg tablet 25 mg PO DAILY #90 tabs 04/02/25 04/04/25 tamsulosin 0.4 mg capsule (Flomax) 0.8 mg (2 x 0.4 mg) PO DAILY #180 04/02/25 04/04/25 tab-caps Previous Rx's ?Medication ?Instructions ?Recorded ibuprofen 600 mg tablet 600 mg PO TID PRN pain #30 tabs 09/05/21 esomeprazole magnesium 40 mg See Rx Instructions .Route 04/02/25 capsule,delayed release .COMPLEX #90 caps hydrochlorothiazide 25 mg tablet 25 mg PO DAILY #90 tabs 04/02/25 tamsulosin 0.4 mg capsule (Flomax) 0.8 mg (2 x 0.4 mg) PO DAILY #180 04/02/25 tab-caps Allergies Allergy/AdvReac Type Severity Reaction Status Date / Time No Known Allergies Allergy Verified 04/04/25 13:41 General Stated Complaint: Trauma EVE: 3 Exam Narrative Exam Narrative: 1.Const: Well-nourished, Well-developed, appearing stated age 2.Eyes: PERRL, no conjunctival injection, and symmetrical lids. 3.ENT: Atraumatic external nose and ears. Moist MM. Neck: Symmetric, trachea midline, No thyromegaly. There is no evidence of raccoon eyes, jose sign, CSF rhinorrhea, mastoid tenderness, cranial crepitus, hemotympanum, exophthalmos, or hyphema. Patient demonstrates intact dentition with no signs of tooth avulsion or fracture, no signs of jaw deformity, no evidence of a LeFort's fracture, with an intact palate, nose and orbital region. There is no evidence of a nasal septal hematoma. No proptosis. Jaw closes symmetrically. Airway is clear. 4.CVS: Regular rate and rhythm, Normal s1 and s2. No murmurs, carotid bruits, rubs, or gallops. Radial pulses 2+ bilaterally and symmetric. Dorsalis pedis pulses 2+ bilaterally and symmetric. 2+ capillary refill. No evidence of distant heart sounds. No extremity edema. No evidence of gross hemorrhage. 5.RESP: Airway clear, no obstructions. No abrasions or ecchymosis. Chest movement symmetric with respirations. Mild chest wall tenderness is appreciated on the left lateral chest wall and right posterior chest wall. Trachea midline. No crepitus. No step offs. No paradoxical movements. Lungs are clear to auscultation bilaterally. No rales, rhonchi, wheezing or stridor. Breath sound symmetric. No Sucking chest wounds. No clinical evidence of severe chest trauma. 6.GI: Soft, nondistended. Tenderness is present in the anterior mid and left and right lateral components of the abdomen on palpation. Bowel tones normoactive. No masses or organomegaly. Mild ecchymosis is noted on the anterior mid abdomen. No periumbilical ecchymosis or seatbelt sign. Genital Exam: Intact and traumatically unremarkable genital and rectal exam with no significant bruising, blood, or deformity. Rectal tone normal, stool without gross blood. 7.MSK: No gross deformities or discolorations or lesions. Tolerates full range of motion of extremities however tenderness is noted in the left knee and calf, right hip, right knee, right toes. All compartments of upper and lower extremities are soft. Vascular exam demonstrates brisk capillary refill and intact pulses in all extremities. Pelvic exam demonstrates a stable pelvis, tender to lateral compression on the right with no tenderness on palpation of symphysis pubis. Left knee: The knee is stable to varus and anterior drawer stress. However there does appear to be some laxity on valgus stressing. No deformity. Tenderness is present on the proximal fibula, and posterior knee. There is also tenderness in the mid fibula and notable tenderness/exquisite tenderness in the posterior left calf. No tenderness over the tibial plateau or the patella. Patient demonstrates good flexion and extension strength of the knee, as well as plantar and dorsiflexion of the left foot/ankle. Dorsalis pedis posterior tibial pulse +1, brisk capillary refill and intact sensation. No tenderness over the toes. Right knee: The knee is stable to varus, valgus stress. There does appear to be some laxity with anterior drawer test. No deformity. Patient has tenderness in the right hip on palpation, mild pain with logroll of the right leg, radiating to the right hip. Pain in the anterior and posterior aspects of the knee including the patella and tibial plateau on the right knee. Additionally there is mild pain in the calf with plantar and dorsiflexion of the right ankle, particularly pain in the right thigh with dorsiflexion and pain in the right calf with plantarflexion. However strength remains intact. No edema or warmth to the joint. 8.Skin: Warm, Dry. 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 Sensation grossly intact, however tingling is present on the right lower extremity from the calf down to the ankle. No focal neurologic deficits. 10.Psych: (AAO) x3. Appropriate mood and affect Course Vital Signs Vital signs: Vital Signs Temperature 36.7 C 04/04/25 13:18 Pulse 74 04/04/25 13:18 Respiratory Rate 18 04/04/25 13:18 Blood Pressure 112/76 04/04/25 13:18 Pulse Oximetry 96 04/04/25 13:18 Temperature 36.7 C 04/04/25 13:18 Temperature Source Skin 04/04/25 13:18 Pulse 74 04/04/25 13:18 Respiratory Rate 18 04/04/25 13:18 Respiratory Effort Normal 04/04/25 13:29 Respiratory Depth Normal 04/04/25 13:29 Respiratory Pattern Normal 04/04/25 13:29 Blood Pressure 112/76 04/04/25 13:18 Blood Pressure Position Supine 04/04/25 13:18 Pulse Oximetry 96 04/04/25 13:18 Oxygen Delivery Method Room Air 04/04/25 13:18 Oxygen Flow Rate 0 04/04/25 13:18 Pain Level 7 04/04/25 13:18 Medical Decision Making This is a pleasant 64-year-old male with a past medical history of hypertension, high cholesterol, kidney stones, prostatic hypertrophy, who presents today for evaluation after trauma. 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 It hit him around the buttock, and then pinned him underneath, with compression on buttock, hip, calves and legs bilaterally. Patient had a brief loss of consciousness, and it subsequently took multiple men to get the device off after being on him for about 30 seconds. He was subsequently brought in by EMS for evaluation. He complains of notable pain in his hips bilaterally, abdomen, and bilateral legs, particularly notable pain and burning in the left calf, pain in his right toes and knee and hip, and pain in his left lateral knee. He denies hitting his head. He has no other complaints at this time. He denies any blood thinner use. He did have a laparoscopic surgery on his right knee on the ACL in the distant past by Dr. Jurado. He denies any other orthopedic surgeries. Patient has complex physical exam findings, please refer to physical exam section, however in brief patient has bruising over the anterior abdomen, bedside FAST exam shows no large fluid collections. He has tenderness to the lateral thoracic rib cages, he has tenderness over the right hip, right knee, right toes. He also has tenderness on palpation of the left fibula and calf. Despite this the patient has good plantar and dorsiflexion strength for both feet/ankles bilaterally, however he has notable pain in his left calf with this, and pain in his calf and right thigh with these movements for the right-hand side. He also has tingling in the area of the mid calf and vance on the right lower extremity. Bilateral vascular exams demonstrate dorsalis pedis pulses that are +1 and intact and found visually on ultrasound as well bilaterally. He has brisk capillary refill of all toes. He also has anterior drawer test laxity for the right knee and valgus stressing laxity on the left knee. Differential is broad but include osseous fracture and intra-abdominal trauma of the chest and abdomen, as well as the lower extremities. Differential also includes vascular injury, arterial pathology, and nerve compression. I do suspect muscular contusion as well as potential muscle tear of the left calf, and right size. Will get ankle-brachial indices, we will rehydrate and evaluate for rhabdo, will get CT imaging with aortic runoff. At this time though patient is able to move all extremities and does not show evidence of severe dislocation, or severe fracture. Patient's pain is well-controlled from fentanyl given by EMS. 4:[address] scan results have returned from virtual radiology, no evidence of vascular injury, chest abdomen or pelvis or osteo injury. Patient was given Toradol, Ofirmev, and Dilaudid. After an extended observation time the patient was continually reassessed. At this most recent reassessment the patient's pain at rest is completely resolved. Ankle-brachial indices are normal for all extremities with no evidence or pattern to suggest occlusive or arterial pathology. Repeat CPK was performed and does not show any exponential climb in value. Patient feels well. Secondary survey demonstrates stable vital signs, stable reassessment aside for persistent pain in the right knee but only with weightbearing. Pain is notably present in the right knee when any weightbearing attempt is made. X-rays were ordered and are negative for acute process or fracture. Discussed the case with Dr. Chambers, he recommends close follow-up in the clinic this week, particularly Sunday. We will place a hinged knee braces on both knees for enhanced stability especially given the initial physical exam findings and ligamentous laxity's. Patient was given crutches, and will be requested to remain nonweightbearing on the right knee until MRI or follow-up with orthopedics. Will recommend continued NSAIDs and ice for pain control as well as elevation. Discussed red flags for which to return. Case was also discussed with the patient's , she agrees and understands the plan. I have extensively reviewed the treatment plan and discharge instructions with the patient and their family. I have addressed all patient concerns at this time. The patient and family was made aware of what symptoms to monitor for that would warrant a return to the emergency department. Discussed the plan with the patient and family, they demonstrate verbal understanding and agreement with our assessment and plan at this time. The documentation in this chart was dictated using Livestream dictation software. Please excuse any dictation errors. Additionally, at the time of reassessment and disposition, patient's compartments were all soft on palpation. Pulses were intact in the lower extremities bilaterally, brisk capillary refill was present, and there was no evidence to suggest compartment syndrome, significant neurovascular compromise, or osseous fracture. FINDINGS: Aorta: No aortic aneurysm. No aortic dissection. Celiac trunk and mesenteric arteries: No occlusion or significant stenosis. Renal arteries: No occlusion or significant stenosis. 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 Right femoral/popliteal arteries: No occlusion or significant stenosis. Right infrapopliteal arteries: No occlusion or significant stenosis. Left iliac arteries: No occlusion or significant stenosis. Left femoral/popliteal arteries: No occlusion or significant stenosis. Left infrapopliteal arteries: No occlusion or significant stenosis. Liver: Fatty infiltration hypodensities most likely representing simple cysts noted Gallbladder and biliary ducts: Prior cholecystectomy. No ductal dilation. Pancreas: Unremarkable. No mass. No ductal dilation. Spleen: Normal. No splenomegaly. Adrenal glands: Normal. No mass. Kidneys and ureters: Normal. No mass. Stomach and bowel: Unremarkable. No obstruction. No mucosal thickening. Appendix: No evidence of appendicitis. Urinary bladder: Unremarkable. No mass. Reproductive: Unremarkable as visualized. Intraperitoneal space: Unremarkable. No free air. No significant fluid collection. Lymph nodes: No lymphadenopathy. Bones/joints: No acute fracture. No dislocation. Soft tissues: Unremarkable. IMPRESSION: No large vessel occlusion or significant stenosis. 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 Dictated and Authenticated by: Julio Thornton MD 04/04/2025 2:42 PM Eastern Time ([place] & [place]) FINDINGS: Brain: Mild volume loss No hemorrhage. Mild white matter disease. No mass effect. Cerebral ventricles: No ventriculomegaly. Paranasal sinuses: Visualized sinuses are unremarkable. No fluid levels. Mastoid air cells: Visualized mastoid air cells are well aerated. Bones: Unremarkable. No acute fracture. Soft tissues: Unremarkable. IMPRESSION: No acute intracranial hemorrhage FINDINGS: Bones: No acute fracture. Loss of cervical lordosis is presumably on a degenerative basis.No severe spinal canal stenosis. Multilevel neural foraminal narrowing. Lungs: Lung apices are normal. Soft tissues: Unremarkable. IMPRESSION: No acute cervical spine fracture. Thank you for allowing us to participate in the care of your patient. Dictated and Authenticated by: Julio Thornton MD 04/04/2025 2:11 PM Eastern Time ([place] & [place]) FINDINGS: Bones/joints: No acute fracture. Alignment is grossly maintained. Chronic loss of vertebral body height and extensive anterior osteophytes presumed degenerative No significant disc bulge or herniation. No severe spinal canal stenosis. No significant neural foraminal narrowing. Soft tissues: Unremarkable. IMPRESSION: No acute thoracic spine fracture. FINDINGS: Bones/joints: No acute fracture. Loss of lumbar lordosis with chronic multilevel loss of vertebral body height presumed degenerative. No significant disc bulge or herniation. No severe spinal canal stenosis. Severe foraminal stenosis at L5-S1. Partial lumbarization of S1 Soft tissues: Unremarkable. IMPRESSION: No acute lumbar spine fracture. Thank you for allowing us to participate in the care of your patient. Dictated and Authenticated by: Julio Thornton MD 04/04/2025 2:48 PM Eastern Time ([place] & [place] FINDINGS: Limitations: Motion artifact. Bones/joints: Unremarkable. Soft tissues: Unremarkable. IMPRESSION: No evidence for acute bony injury. If clinical symptoms persist recommend followup film in 7-10 days. Thank you for allowing us to participate in the care of your patient. Dictated and Authenticated by: Myah Rosas MD 04/04/2025 4:38 PM Eastern Time ([place] & [place]) [facility] All Active Problems (Updated 04/04/25 @ 16:43 by Avni Sexton DO) Right knee sprain (Acute) Crush injury (Acute) Trauma (Acute) Cervical spinal stenosis (Acute ~03/2025) 03/23/25 [facility] Spondylosis without myelopathy or radiculopathy, cervical region (Acute ~03/2025) 03/23/25 [facility] Postconcussional syndrome (Acute ~03/2025) 03/23/25 [facility] Occipital neuralgia of left side (Acute ~03/2025) 03/23/25 [facility] Myofascial pain (Acute ~03/2025) 03/23/25 [facility] Cough (Acute) Central cord syndrome at unspecified level of cervical spinal cord, subsequent encounter (Acute) 11/18/24 Neurology, Dr Domingo 02/23/25 F/U with Dr Domingo, Neurology 03/10/25 Neurology -Brain and Spine MRI Reviewed Patellofemoral arthritis of left knee (Acute) Patellar tendinitis, left knee (Acute) Right radial fracture (Acute ~07/27/24) COVID-19 (Acute) Multifocal pneumonia (Acute) Hypoxia (Acute) On supplemental oxygen therapy (Acute) SARS-CoV-2 positive (Acute) Gout attack (Acute) IFG (impaired fasting glucose) (Acute) Papule (Acute) Adjustment disorder with depressed mood (Acute 01/23/11) BMI 38.0-38.9,adult (Acute 01/01/15) Raza's esophagus (Acute 06/11/09) Upper GI 05/23 and 11/08/09 Dr. Cal[place] 08/28/[place] [facility] [place] C2M1 Raza's esophagus s/p biopsy History of kidney stones (Acute 06/13/16) Hyperlipidemia (Chronic 12/22/05) Low back pain (Acute 08/22/13) heniated disc R L4-5 Microscopic hematuria (Acute 06/13/16) Obstructive sleep apnea (Acute 05/04/14) 04/2014, C-pap 06/2016 Bi-pap Onychomycosis (Acute 02/05/14) recurrent Unstable angina (Acute 06/19/17) note from [facility] [place] dated 06/19/17 from transthoracic Echocadiogram. Diarrhea (Acute) HTN (hypertension) (Chronic) Active Problem List COVID-19 (Acute) Multifocal pneumonia (Acute) Hypoxia (Acute) On supplemental oxygen therapy (Acute) SARS-CoV-2 positive (Acute) Gout attack (Acute) IFG (impaired fasting glucose) (Acute) Papule (Acute) Adjustment disorder with depressed mood (Acute 01/23/11) BMI 38.0-38.9,adult (Acute 01/01/15) Raza's esophagus (Acute 06/11/09) History of kidney stones (Acute 06/13/16) Hyperlipidemia (Chronic 12/22/05) Low back pain (Acute 08/22/13) Microscopic hematuria (Acute 06/13/16) Obstructive sleep apnea (Acute 05/04/14) Onychomycosis (Acute 02/05/14) Unstable angina (Acute 06/19/17) Diarrhea (Acute) HTN (hypertension) (Chronic) Medical History Barretts esophagus BPH (benign prostatic hyperplasia) Essential hypertension GERD (gastroesophageal reflux disease) History of cardiac catheterization KATHE (obstructive sleep apnea) on bipap Surgical History Appendectomy Arthroplasty of knee right Cardiac Catheterization Cholecystectomy (10/31/17) Colonoscopy - MAC EGD - MAC Repair, Tendon or Muscle Rotator Cuff Repair (11/20/16) Dr Kimani Esteban repair and tenodesis long head of R biceps S/P cholecystectomy Spinal Surgery Family History Father Essential hypertension Heart disease Hyperlipidemia Myocardial infarction Grandmother Diabetes Social History (Updated 09/03/23 @ 08:46 by Fela Ramachandran LPN) Smoking/Tobacco Use Status: Never Smoking risk assessment performed?: Yes Alcohol Intake: never Drug use: Never Substance use type: does not use Adopted: No Caregiver/Support person: No Foster care: No Housing: house Number of Children: 4 Communication Needs: None and Corrective Lenses Do you need help understanding health information?: Rarely 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 Current gender identity: male What type of physical activity do you participate in: none Do you feel safe at home: Yes Do you feel safe in your relationship?: Yes POCUS Exam (ED) FAST Exam DATE OF EXAM: 04/04/25 TIME OF EXAM: 14:21 PROVIDER THAT PERFORMED THE STUDY: Avni Sexton IS THIS A REPEAT EXAM DURING THIS ENCOUNTER: no REASON FOR EXAM: Blunt abdominal trauma VISUALIZED STRUCTURES: Hepatorenal space, Pelvis and Perisplenic space PERTINENT FINDINGS/IMPRESSION: no apparent abnormalities Limited Transthoracic Exam: Exam complete Limited Chest Exam: Exam complete Limited Abdominal Exam: Exam complete Limited Retroperitoneal Exam: Exam complete
[2025-04-04 13:43] LABS: Abs Immature Grans 0.09 10^3/uL (0.0-0.06); Absolute Basophil Count 0.07 10^3/uL (0.0-0.2); Absolute Eosinophil Count 0.35 10^3/uL (0.0-0.7); Absolute Lymphocyte Count 1.38 10^3/uL (1.2-3.4); Absolute Monocyte Count 1.07 10^3/uL (0.1-0.8); Absolute Neutrophil Count 4.86 10^3/uL (1.2-6.7); Basophils % 0.9 %; Eosinophils % 4.5 %; HGB 13.9 g/dL (13.5-17.5); Immature Grans % 1.2 %; Lactate 1.1 mmol/L (<or=2.0); Lymphocytes % 17.6 %; MCH 28.9 pg (27.0-33.0); MCHC 33.9 % (32.0-36.0); MCV 85 fL (80-95); MPV 8.6 fL (8.0-11.0); Monocytes % 13.7 %; Neutrophils % 62.1 %; Platelet Count 198 10^3/uL (130-400); RBC 4.81 10^6/uL (4.36-5.78); RDW 12.5 % (11.8-14.1); RDW-SD 38.5 fL; WBC 7.82 10^3/uL (4.4-10.8)
--- NOTE | 2025-04-04 13:45 | DI.CT_ITS ---
Exam(s) CT HEAD CERVICAL SPINE WO EXAM: CT HEAD CERVICAL SPINE WO CLINICAL HISTORY: fall, trauma, hit by skid steer implement. +LOC. TECHNIQUE: Imaging Protocol: Axial computed tomography images with coronal and sagittal reformatted images were created and reviewed COMPARISON: CT CT SPINE CERVICAL WO CONTRAST from 07/27/2024 FINDINGS: CT Head: Ventricles and Extra axial spaces: Normal in size and morphology for the patient's age. Hemorrhage: None. Cerebral parenchyma: No evidence of an acute territorial infarct. There is no mass effect. Midline shift: None. Brainstem/Cerebellum: Normal. Calvarium: Normal. Visualized Paranasal sinuses/Mastoids: Clear. Soft Tissues: Unremarkable. CT Cervical Spine: Bones: No acute fracture or subluxation. Age-appropriate degenerative changes are seen in the cervical spine. Soft Tissues: Unremarkable. Lung Apices: Clear. IMPRESSION: 1. No acute intracranial process. 2. No acute fracture or subluxation in the cervical spine. RADIATION DOSE DELIVERED: 1,510.28mGy.cm Total DLP DATA REPOSITORY: All CT scans at this facility are submitted to the National Radiology Data Registry (NRDR) Dose Index Registry (DIR) with the [employer] [place] [employer] (ACR). RADIATION OPTIMIZATION: All CT scans at this facility use at least one of these dose optimization techniques: automated exposure control; mA and/or kV adjustment per patient size (includes targeted exams where dose is matched to clinical indication); or iterative reconstruction.
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
[2025-04-04 13:52] LABS: PTT Activated 22.1 sec (20.6-30.2); Prothrombin Time 10.3 sec (9.1-11.1)
[2025-04-04] MEDS: Normal Saline 1,000 ML 1000 ML IV (14:00)
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
[2025-04-04] MEDS: Normal Saline - Diluent 50 ML VIAL IJ (14:19)
[2025-04-04] MEDS: Omnipaque 350 MG/ML 100 ML BTL IJ (14:19)
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
[2025-04-04] MEDS: HYDROmorphone 2 MG/ML SYR 1 MG IVP (14:59)
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
[2025-04-04 15:04] LABS: ALT 24 U/L (16-63); AST 25 U/L (15-37); Alkaline Phosphatase 87 U/L (46-116); Anion Gap 7.6 mmol/L (3-11); BUN 26 mg/dL (7-18); Bilirubin, Total 0.8 mg/dL (0.2-1.0); CO2 27.4 mmol/L (21.0-32.0); CREATININE 1.1 mg/dL (0.70-1.30); Calcium 7.5 mg/dL (8.5-10.1); Chloride 102 mmol/L (98-107); Creatine Kinase 466 U/L (39-308); Estimated GFR 74.96 (mL/min/1.73m2); Glucose 97 mg/dL (74-106); Sodium 137 mmol/L (136-145); Total Protein 5.7 g/dL (6.4-8.2)
[2025-04-04] MEDS: Ketorolac 30 MG/ML VIAL IVP (15:08)
[2025-04-04] MEDS: ACETAMINOPHEN 1,000 MG/100 ML BTL 400 MG IVPB (15:09)
[2025-04-04 16:17] LABS: Creatine Kinase 493 U/L (39-308)
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
== END 2025-04-04 17:29 | disposition home or self-care (01) ==
LOC: ER 17:26
PROVIDERS: Emergency Provider Student in an Organized Health Care Education/Training Program; PCP Nurse Practitioner
DX: S83.91XA Sprain of unspecified site of right knee, initial encounter (principal); M79.661 Pain in right lower leg; M79.662 Pain in left lower leg; M25.551 Pain in right hip; M25.552 Pain in left hip; R10.30 Lower abdominal pain, unspecified; W23.1XXA Caught, crushed, jammed, or pinched between stationary objects, initial encounter; M25.562 Pain in left knee
CPT/HCPCS: 99284 ×2; 29505; 96374; 96375; 36415; 74177; 75635; 76604; 76705; 76857; 80053; 82550; 93308; 96361; 70450; 71260; 72125; 73564; 83605; 85025; 85610; 85730; J0131; J1171; J1885; J3490

== ENCOUNTER 2025-04-14 12:51 | Outpatient (CLI) | payer SELFPAY ==
[2025-04-14 10:47] LABS: Anion Gap 7.4 mmol/L (3-11); BUN 24 mg/dL (7-18); CO2 32.6 mmol/L (21.0-32.0); Calcium 8.8 mg/dL (8.5-10.1); Chloride 105 mmol/L (98-107); Creatine Kinase 103 U/L (39-308); Estimated GFR 98.83 (mL/min/1.73m2); Glucose 95 mg/dL (74-106); Potassium 3.3 mmol/L (3.5-5.1); Sodium 145 mmol/L (136-145)
== END 2025-04-14 12:52 | disposition home or self-care (01) ==
LOC: LBO 12:52
PROVIDERS: PCP Nurse Practitioner Family; Visit Provider Family Medicine
DX: S83.91XA Sprain of unspecified site of right knee, initial encounter (principal); M23.91 Unspecified internal derangement of right knee; T14.8XXA Other injury of unspecified body region, initial encounter
CPT/HCPCS: 36415; 80048; 82550

== ENCOUNTER 2025-07-23 17:17 | Observation (INO) | payer MEDICAID, SELFPAY ==
[2025-07-23] VITALS (38 sets, daily range): BP systolic 80–156; BP diastolic 38–107; PULSE 49–77; RESP 9–22; TEMP 35.5–36.8; O2SAT 87–98; BMI 35.3
--- NOTE | 2025-07-23 07:25 | W.PM.OP ---
Operative Note Operative Note PRE-OP DIAGNOSIS: Right knee: 1. ACL rupture 2. Medial & lateral meniscus tears 3. Patellar chondromalacia PROCEDURE: Right knee: 1. ACL reconstruction, CPT #69241: Quadriceps allograft 2. Partial medial & lateral meniscectomy, CPT #71737 3. Patellar chondroplasty, CPT # [id number] SURGEON: Willy Chambers DIRECTOR WORK: Cj Diggs ANESTHESIA TYPE: Local By Surgeon and General LMA/ETT Refer to Anesthesia Record ESTIMATED BLOOD LOSS: 10 TOURNIQUET TIME: 0 COMPLICATIONS: None Patient was transported to: PACU Patient's condition: stable Implants: Arthrex ACL TightRope II RT and ABS with 14mm round cortical button QuadLink pre-sutured quadriceps allograft: 10.5 x70 mm Indications: Please see complete medical record for details. Findings: Exam under anesthesia: About 5 degree block to full extension, flexion past 125 degrees, grossly positive Campos and anterior drawer testing. Negative posterior drawer. Stable varus valgus. Arthroscopic findings: Moderately significant suprapatellar and engaging patellofemoral synovitis. Mild to moderate central trochlear and patellar chondromalacia. Degenerative posterior horn body medial meniscus white to white-red zone tearing at the junction. Traumatic posterior horn partial root lateral meniscus tear. ACL disruption complete proximal and mid substance with a large portion flipped anteriorly. Only mild medial lateral chondromalacia. Procedure Description: In the operating room, general anesthesia was induced. The patient was positioned supine on the operating room table. All bony prominences were well-padded. Preoperative antibiotics were administered. The knee was prepped and draped in the usual sterile fashion. The correct patient, procedure, and side of the procedure were all verified prior to incision. Exam under anesthesia was performed. Local anesthetic containing epinephrine was infiltrated about the planned anteromedial, anterolateral, lateral distal femoral, and pretibial surgery sites. The standard high and tight anterolateral and anteromedial portals were established and a complete diagnostic arthroscopy was performed with relevant findings detailed above. A passport cannula was inserted in both the anteromedial and anterolateral portals. The meniscus biters and torpedo shaver were used to resect the torn meniscus tissue in the medial compartment to a more stable appropriate margin and similarly in the figure 4 lateral compartment of the posterior horn nicely contouring the remnant tissue preserving as much recently possible removing moderately significant medial meniscus tissue at the posterior horn body junction and more moderate of the posterior horn lateral meniscus root junction. The torpedo shaver was used to contour smooth undersurface patellar cartilage as well as some cartilage in the central trochlea after the regular shaver and ablator's were used to resect abundant inflamed synovium. In the intercondylar area, the ACL remnant was removed leaving enough footprint on the femur and tibia to localize anatomic socket placement. A small notchplasty was performed to allow proper visualization of the back wall. The graft was measured and prepared on the back table. The TightRope II BTB and TightRope II ABS adjustable-loop cortical suspensory fixation implants were loaded on QuadLink pre-sutured quadriceps allograft. The femoral and tibial ends each measured 10 mm. The graft was marked at 20 mm from each end. On the ABS side, the tensioning sutures were marked and a shuttle suture was added. The graft was manually tensioned and the construct did not demonstrate any elongation. The graft was then compressed in a graft tube and covered with vancomycin soaked sponges. The femoral guide was then placed through the anterolateral portal carefully targeting the appropriate anatomic ACL origin. The outer 9 mm diameter of the guide was positioned anatomically with appropriate space between the proximal and posterior articular margins. On the lateral thigh, drill guide position and angle adjusted to about 60 degree angle to the longitudinal axis of the femur in the coronal plane and 20 degree angle to the trans-epicondylar axis in the axial plane to create the most optimal femoral socket. Knife and snap were used to open the skin and IT band and placed the drill guide on bone while maintaining appropriate position on the lateral wall. The tunnel length was noted to be used for marking and passing the femoral button. The flip cutter was then drilled to the appropriate location. The drill guide malleted 7 mm into the cortex. The remainder of the targeting guide removed. The FlipCutter was deployed to 10 mm and retrograde reaming done to a depth of 35 mm. Bony debris was removed with the shaver. The flip cutter was then closed, withdrawn, and a FiberSnare used to pass a #2 FiberWire shuttle stitch, which was withdrawn out the anterolateral portal. The tibial guide was then used to target the anatomic ACL insertion through the anteromedial portal. The drill angle adjusted to 57.5 degrees and a pretibial incision made. The drill guide was placed on bone, tunnel length noted, and the flip cutter drilled to the appropriate location. The drill guide malleted 7 mm into the cortex. The remainder of the targeting guide removed. The FlipCutter was deployed to 10mm and retrograde reaming done to a depth of 35mm. Bony debris was removed with the shaver. The flip cutter was then closed, withdrawn, and a FiberSnare used to pass a #2 FiberWire shuttle stitch, which was withdrawn out the anteromedial portal. The mechanical shaver was used to remove bone debris as well as chamfer and remove soft tissue from the edges of the sockets. A femoral shuttle sutures were withdrawn out the anterior medial portal. The PassPort was removed. This portal dilated to accommodate the graft size. The graft was brought over to the knee and the femoral sutures shuttled out the lateral thigh and advanced until the button was near the far cortex. Under arthroscopic visualization with the knee slightly hyperflexed, and the button was then passed and flipped on the far cortex. Counter traction was then maintained on the tibial side of the graft while it was carefully advanced into the knee and then about 15 mm into the femoral socket. The tibial sutures were then shuttled through the tibial tunnel and passing stitch removed while carefully noting the tensioning stitches. The graft was then dunked about 15 mm into the tibial socket. 14 mm round ABS button was then loaded to the ABS loop and tension sutures used to bring the cortical button down to bone. The graft was advanced and then provisionally tensioned on both the femoral and tibial sides. The knee was then cycled 22 times, tensioning rechecked, and final tightening done with the knee in full extension with a moderate reverse Campos maintained. The graft position and tension were appropriate. There was no impingement in full extension. Campos exam was rockstable. Femoral passing sutures were removed. Backup knots were then tied on both sides and suture tails cut. The knee and all portals were copiously irrigated and then knee drained of arthroscopic fluid. 3-0 Monocryl was used to close the portals and small incisions in a buried interrupted fashion. Mastisol, Steri-Strips, Xeroform, 4 x 4 gauze, and sterile soft roll was applied. The extremity was wrapped gently with an Rafi bandage. The patient awoke from anesthesia without complication and was transferred to the recovery room in a stable condition. Date of Procedure: 07/23/25
--- NOTE | 2025-07-23 09:12 | PDOC.DSDIS_ITS ---
Date of service: 07/23/25 Discharge Plan Disposition Patient Disposition: Home Condition: Stable Discharge Details Attending Provider: Willy Chambers Primary Care Provider: Letty Grant Home Meds and New Rx's Prescriptions: New naproxen 250 mg tablet 250 - 500 mg PO BID PRN (Reason: Moderate pain) Qty: 40 0RF aspirin 81 mg tablet,delayed release (DR/EC) 81 mg PO DAILY 14 Days Qty: 14 0RF oxycodone 5 mg tablet 5 - 10 mg PO Q4H PRN (Reason: Moderate to severe pain) Qty: 18 0RF Continued ibuprofen 600 mg tablet 600 mg PO TID PRN (Reason: pain) Qty: 30 0RF Rx Instructions: Rib pain from coughing; take with food & Nexium (RX) acetaminophen 325 mg tablet See Rx Instructions PO Q6H PRN Rx Instructions: 3 tablets orally every 6 hours PRN; esomeprazole magnesium 40 mg capsule,delayed release(DR/EC) See Rx Instructions .ROUTE .COMPLEX Qty: 90 3RF Dose Instruction: TAKE ONE CAPSULE BY MOUTH EVERY DAY Rx Instructions: TAKE ONE CAPSULE BY MOUTH EVERY DAY hydrochlorothiazide 25 mg tablet 25 mg PO DAILY Qty: 90 3RF tamsulosin [Flomax] 0.4 mg capsule 0.8 mg PO DAILY Qty: 180 3RF Discharge Instructions Additional Instructions: Surgery: Right knee ACL reconstruction (allograft), medial & lateral partial meniscectomy, and patellar chondroplasty 07/23/2025 Activity: Weightbearing as tolerated. No brace or crutches needed as soon as comfortable and stable on knee. Restore full knee extension as soon as possible. Perform early quad sets/quadriceps isometrics. Gradually increase flexion to full. Recommend elevation to minimize swelling discomfort. Encourage ankle pumps and wiggle toes to improve circulation. A physical therapy prescription will be sent electronically to begin in 3 weeks. Avoid sports activities for about 9+ months. Prescriptions: Aspirin 81 mg take 1 daily to prevent a blood clot for 14 days Naproxen 250 mg take 1-2 every 12 hours with a meal as needed for moderate pain Oxycodone 5 mg take 1-2 every 4-6 hours as needed for severe pain You may use [id number] Tylenol (acetaminophen) as needed for mild pain. These pain medications may be taken all at once or in different combinations as needed. Also, recommend Colace (docusate) as a stool softener as surgery and pain medicine cause constipation. You may try [id number] diphenhydramine (Benadryl) 25-50 mg nightly as a sleep aid Dressings: Leave dressing in place for 3 days. May then remove and leave open to air or cover incisions with Band-Aids. Leave the sticky Steri-Strips in place until they fall off or remove them after you shower. May shower after 5 days. Follow-up: 10-[address] Chambers You may take off the leg compression stockings this evening at home. You may also leave them on a few days longer if you have a history of leg swelling or edema. Let us know right away if you develop any redness, drainage, fevers, chest pain, or trouble breathing. Do not drink alcohol or drive for at least 24 hours after anesthesia. Please call the office during business hours with any questions or concerns. Stand Alone Forms: Anesthesia Discharge Inst., Crutch Training Instructions, Tuan Brown (DSU) Referrals: Willy Chambers MD [ [facility] STAFF PHYSICIAN, Orthopaedic Surgical] - 08/04/25 10:30 am Discharge Orders Discharge Orders: Discharge Order (Routine); Ordered 07/23/25 Ordered By: Cj Diggs DS: Diagnosis Discharge Diagnosis (1) Right ACL tear: Status: Acute (2) Acute medial meniscus tear of right knee: Status: Acute (3) Acute lateral meniscus tear of right knee: Status: Acute
[2025-07-23] MEDS: Lactated Ringers 1,000 ML 30 ML IV ×2 (10:52→17:17)
--- NOTE | 2025-07-23 11:45 | ANES.PREOP_ITS ---
General Info Date of Service Date Performed: 07/23/25 Height: 6 ft 1 in Weight: 121.5 kg Body Mass Index (BMI): 35.3 Surgical Procedure: Operation Date: 07/23/25 12:25 Proposed Procedure Side Surgeon p Knee ACL Reconstruction (Allograft) Right Willy Chambers MD Meds Allergies and Home Medications Allergies Allergy/AdvReac Type Severity Reaction Status Date / Time No Known Allergies Allergy Verified 07/23/25 10:12 Home Medication ?Medication ?Instructions ?Recorded ibuprofen 600 mg tablet 600 mg PO TID PRN pain #30 t abs 09/05/21 acetaminophen 325 mg tablet See Rx Instructions PO Q6H PRN 07/31/24 hydrochlorothiazide 25 mg tablet 25 mg PO DAILY #90 ta bs 04/02/25 tamsulosin 0.4 mg capsule (Flomax) 0.8 mg (2 x 0.4 mg) PO DAILY #180 04/02/25 tab-caps esomeprazole magnesium 40 mg See Rx Instructions .Rout e 04/14/25 capsule,delayed release .COMPLEX #90 caps aspirin 81 mg tablet,delayed 81 mg PO DAILY Prevent bl ood clot 07/23/25 release 14 days #14 tabs naproxen 250 mg tablet 250 - 500 mg (1 - 2 x 250 mg ) PO 07/23/25 BID PRN Moderate pain #40 tabs oxycodone 5 mg tablet 5 - 10 mg (1 - 2 x 5 mg) PO Q4H 07/23/25 PRN Moderate to severe pain #18 tabs Current Visit Medications: Current Medications Generic Name Dose Route Start Last Admin Trade Name Freq PRN Reason Stop Dose Admin Ringer's Solution 1,000 mls @ 30 mls/hr 07/23/25 06:00 07/23/25 10:52 IV 07/23/25 23:59 30 mls/hr INFUSION ROE Administration Cefazolin Sodium 3,000 mg/ 100 mls @ 200 mls/hr 07/23/25 06:00 Sodium Chloride IV 07/23/25 23:59 PREOP ROE Tranexamic Acid/Sodium Chloride 1,000 mg in 100 mls @ 600 mls/hr 07/23/25 06:00 IVPB 07/23/25 23:59 PREOP ROE IV Miscellaneous Supplies 1 each 07/23/25 06:00 Iv Access IV 07/23/25 23:59 DIRECTED ROE Oxycodone HCl 0 mg 07/23/25 09:12 Oxycodone 5 Mg Tab PO 08/22/25 09:11 Q3H PRN PRN Pain Sodium Chloride 0 ml 07/23/25 06:00 Normal Saline Flush 10 Ml Syr IV 07/23/25 23:59 PRN PRN Sodium Chloride 0 ml 07/23/25 06:00 Normal Saline 10 Ml Vial IJ 07/23/25 23:59 DIRECTED PRN Sterile Water 0 ml 07/23/25 06:00 Water,Injection,Sterile 10 Ml Vial IJ 07/23/25 23:59 DIRECTED PRN PFSH Active Problems Active Problems: Problem Status Onset Code Osteoarthritis of left knee Acute M17.12 Acute medial meniscus tear of right knee Acute S83.241A Right ACL tear Acute S83.511A Arthritis of knee, left Acute M17.12 Internal derangement of right knee Acute M23.91 Cervical spinal stenosis Acute ~03/2025 M48.02 Spondylosis without myelopathy or radiculopathy, cervical region Acute ~03/2025 M47.812 Postconcussional syndrome Acute ~03/2025 F07.81 Occipital neuralgia of left side Acute ~03/2025 M54.81 Myofascial pain Acute ~03/2025 M79.18 Cough Acute R05.9 Central cord syndrome at unspecified level of cervical spinal cord, subsequent encounter Acute S14.129D Patellofemoral arthritis of left knee Acute M17.12 Patellar tendinitis, left knee Acute M76.52 Right radial fracture Acute ~07/27/24 S52.91XA On supplemental oxygen therapy Acute Z99.81 Hypoxia Acute R09.02 Multifocal pneumonia Acute J18.9 COVID-19 Acute U07.1 SARS-CoV-2 positive Acute U07.1 Gout attack Acute M10.9 IFG (impaired fasting glucose) Acute R73.01 Papule Acute R23.8 Adjustment disorder with depressed mood Acute 01/23/11 F43.21 BMI 38.0-38.9,adult Acute 01/01/15 Z68.38 Avalos's esophagus Acute 06/11/09 K22.70 History of kidney stones Acute 06/13/16 Z87.442 Hyperlipidemia Chronic 12/22/05 E78.5 Low back pain Acute 08/22/13 M54.5 Microscopic hematuria Acute 06/13/16 R31.29 Obstructive sleep apnea Acute 05/04/14 G47.33 Onychomycosis Acute 02/05/14 B35.1 Unstable angina Acute 06/19/17 I20.0 Diarrhea Acute R19.7 HTN (hypertension) Chronic I10 Medical History Medical History Barretts esophagus GERD (gastroesophageal reflux disease) Essential hypertension History of cardiac catheterization KATHE (obstructive sleep apnea) on bipap BPH (benign prostatic hyperplasia) Surgical History Surgical History S/P cholecystectomy Spinal Surgery 2012-Pinched nerve and disc per pt. Rotator Cuff Repair (11/20/16) Dr Harman R repair and tenodesis long head of R biceps Repair, Tendon or Muscle EGD - MAC Colonoscopy - MAC Cholecystectomy (10/31/17) Cardiac Catheterization 07/2024 Arthroplasty of knee right Appendectomy Tobacco Smoking/Tobacco Use Status: Never Passive smoking exposure: No Alcohol Alcohol Intake: never Substance Use Substance use: Never Substance use type: does not use Vital Signs and Lab Results Vital Signs Most Recent Vital Signs in EMR: Most Recent Vital Signs Temp Pulse Resp BP Pulse Ox 36.8 C 73 16 156/107 H 94 07/23/25 10:17 07/23/25 10:17 07/23/25 10:17 07/23/25 10:17 07/23/25 10:17 Imaging and Studies Imaging and Studies Study information below may be from another EMR and interpreted by another provider. Please see original notes in EMR for more complete details. EKG Summary: 09/06/21 Reason for Exam: shortness of breath Patient Location: E HR:89 bpm ECG Measurements Heart Rate 89 AXIS NV 156 P 51 QRSd 99 QRS -5 QT 347 T31 QTc 422 Conclusion Sinus rhythm...normal P axis, V-rate 60- 99. Sinus. No STEMI. I have reviewed and interpreted ECG and agree with software generated interpr etation. Stress Test Summary: ate of study: 03/19/2019 *PATIENT PRESENTATION* Height: 180.3cm (71in) Blood Pressure: Weight: 131.8kg (290lb) BSA: 2.63m^2 Referring physician: Chayo Hill Ordering physician: Chayo Hill Impressions: Normal study after maximal exercise. Summary: 1. Stress ECG conclusions: The stress ECG is negative. Walker treadmill score: 10. This score predicts a low risk of cardiac events. 2. Stress: The target heart rate was achieved. The heart rate response to stress is normal. There is a normal resting blood pressure with an appropriate response to stress. The patient experienced no chest pain during stress. Exercise capacity is average for age. 3. Treadmill exercise testing was performed using the Milton protocol. The patient exercised for 9 min 44 sec, to protocol stage 3, to a maximal work rate of 9.4mets. Exercise was terminated due to fatigue. Indication: R07.9, Appropriate Use Criteria: A (Appropriate). History: REASON FOR TESTING: PATIENT PRESENTED TO THE ER ON 02/05/19 WITH NONEXERTIONAL MIDSTERNAL CHEST PRESSURE THAT LASTED APPROXIMATELY 45 MINUTES. PATIENT DENIES ANY OTHER SYMPTOMS OTHER THAN THIS ONE EPISODE OF CHEST PRESSURE. EKG AND TROPONINS NEGATIVE IN THE ER. PATIENT DENIES CHEST PAIN/PRESSURE UPON ARRIVAL TO TESTING TODAY. SIGNIFICANT PAST MEDICAL HISTORY: HISTORY OF CARDIAC CATHERIZATION, AVALOS'S ESOPHAGUS, GERD, KATHE. SMOKING STATUS: NEVER. EXERCISE ROUTINE: TUG MASTER, AND DAILY ADL'S. Risk factors: Family history of coronary artery disease. Hypertension. Obesity. Dyslipidemia. Cholesterol: 157mg/dl. HDL: 43mg/dl. LDL: 102mg/dl. Triglycerides: 223mg/dl. ALLERGIES: NO KNOWN MEDICATION ALLERGIES. MEDICATIONS: TAMULOSIN 0.4 MG DAILY, HYDROCHLOROTHIAZIDE 25 MG DAILY, ESOMEPRAZOLE MAGNESIUM 40 MG DAILY. Protocol: Milton protocol. Baseline ECG: SINUS RHYTHM. HR 63 BPM. Normal ECG. Stress protocol: + +---+ + !Stage !HR !BP (mmHg) ! + +---+ + !Baseline supine !63 !130/86 (101)! + +---+ + !Baseline standing !84 !134/90 (105)! + +---+ + !Stage I; 1.7mph, 10degrees; 3 min !113!138/82 (101)! + +---+ + !Stage II; 2.5mph, 12degrees; 3 min !126!140/82 (101)! + +---+ + !Stage III; 3.4mph, 14degrees; 3 min!146!158/80 (106)! + +---+ + !Recovery; 1 min !141!160/80 (107)! + +---+ + !Recovery; 3 min !98 !166/80 (109)! + +---+ + !Recovery; 6 min !96 !132/82 (99) ! + +---+ + !Recovery; 9 min !98 ! ! + +---+ + * Stress results: STRESS TEST ENDED IN 9 MINUTES 44 SECONDS DUE TO FATIGUE. NORMAL HEART RATE AND BLOOD PRESSURE. MAX HEART RATE: 164 101 % OF TARGET HEART RATE ACHIEVED. MET'S: 9.44. RARE PVC'S DURING EXERCISE AND RECOVERY. NO ANGINA. NO SIGNIFICANT ST SEGMENT CHANGES. AVERAGE FUNCTIONAL CAPACITY FOR EXERCISE: Maximal heart rate during stress was 164bpm (101% of maximal predicted heart rate). The maximal predicted heart rate was 162bpm. The target heart rate was achieved. The heart rate response to stress is normal. There is a normal resting blood pressure with an appropriate response to stress. The rate-pressure product for the peak heart rate and blood pressure was 30588ls Hg/min. The patient experienced no chest pain during stress. Exercise capacity is average for age. Stress ECG: The stress ECG is negative. Walker treadmill score: 10. This score predicts a low risk of cardiac events. Study data: Jakub Collazo MD supervised and was readily available during the procedure. This study was interpreted by [facility]. Study status: Routine. Consent: The risks, benefits, and alternatives to the procedure were explained to the patient and informed consent was obtained. Procedure: Initial setup. A baseline ECG was recorded. Surface ECG leads and manual cuff blood pressure measurements were monitored. Heart sounds: Normal. Lung sounds: Normal. Treadmill exercise testing was performed using the Milton protocol. The patient exercised for 9 min 44 sec, to protocol stage 3, to a maximal work rate of 9.4mets. Exercise was terminated due to fatigue. Study completion: The patient tolerated the procedure well and was discharged from the lab. Discharge: The patient left the laboratory in stable condition. Birthdate: Patient birthdate: 1960. Sex: Gender: male. Study date: Study date: 03/19/2019. Study time: 00:01 AM. Echocardiogram Summary: 07/28/24: EF 55-60%, no significant valvular lesions Other Study Summary:: Cardiac cath. report 06/19/2017 reviewed Anesthesia Assessment and Plan Anesthesia History Personal History: No History of Anesthesia Complications Family History: No Family History of Anesthesia Complications Exercise Tolerance Exercise Tolerance: Metabolic Equivalents>4 Cardiac & Pulmonary Exam Cardiac Exam: Normal S1/S2 Heart Sounds Pulmonary Exam: Clear Bilateral Breath Sounds Implantable Cardiac Device Does patient have a Pacemaker or an ICD?: No Airway Exam Known Difficult Airway: No Mallampati Class: 1 Mouth Opening: Normal (> 3cm) Thyromental Distance: Greater than 3 cm Neck Range of Motion: Full ROM (Central Canal Syndrome, Glidescope for intubation) Neck Circumference: Normal Teeth Condition: Normal Dentition ASA Classification ASA Score: ASA 3 Emergency Case?: No NPO Status NPO Status: NPO Clears >2 hours, Solids >8 hours Anesthesia Plan Resuscitation Status: Full Code Anesthesia Technique: General Anesthesia Airway Planned: Endotracheal Tube Monitors Used: Standard Monitors and SedLine Preoperative Comments:: After a lengthy conversation with the patient, he reports decreased nerve sensation from the right knee down his medial leg since his initial injury. Discussed the associated risks with an acute/ongoing nerve injury and regional anesthesia and potentially exacerbating the injury. The patient verbalized understanding and acknowledges he will not have a nerve block today.
[2025-07-23] MEDS: ceFAZolin 3,000 MG in Normal Saline 100 ML 200 MG IV (13:48)
[2025-07-23] MEDS: TRANEXAMIC ACID/SOD. CHL. 1,000 MG/100 ML BAG 600 MG IVPB (13:50)
[2025-07-23] MEDS: Vancomycin 1,000 MG VIAL 1000 MG (15:00)
[2025-07-23] MEDS: EPINEPHrine 10 MG/10 ML ML (16:21)
[2025-07-23] MEDS: fentaNYL 100 MCG/2 ML VIAL IVP ×2 (16:29→16:36)
[2025-07-23] MEDS: HYDROmorphone 2 MG/ML SYR IVP ×2 (16:44→17:03)
[2025-07-23] MEDS: ePHEDrine 25 MG/5 ML Syringe IVP (16:55)
--- NOTE | 2025-07-23 17:14 | W.ANESPOSTOP ---
Postoperative Evaluation Date, Time and Location Date Performed: 07/23/25 Time Performed: 17:14 Patient Location: PACU Vital Signs Most Recent Imported Vital Signs: Most Recent Vital Signs Temp Pulse Resp BP Pulse Ox 36.5 C 61 14 115/71 93 07/23/25 17:05 07/23/25 17:05 07/23/25 17:05 07/23/25 17:05 07/23/25 17:05 Pain Score Most Recent Pain Score: Most Recent Pain Score Pain Level 10 07/23/25 17:11 Assessment Mental Status: Awake (Alert & Oriented to Patient Baseline) Airway and Respiratory Function: Patent airway with normal (patient baseline) respiratory exam Cardiovascular Function: Hemodynamically Stable Hydration Status: Adequately Hydrated Nausea & Vomiting: No Nausea or Vomiting Pain: Pain is tolerable per patient Peripheral Nerve Block: Patient did not receive a nerve block Postoperative Comments:: Initially 12/10 in PACU, now 10/10. Smiling and pleasantly conversive. He states his pain is better than when he arrived for surgery today. He is motivated to go home. Plan is to maintain comfort where we are now and move to discharge when ready. Face pain scale is a 2/10.
--- NOTE | 2025-07-23 17:16 | W.ANESPOSTOP ---
Postoperative Evaluation Date, Time and Location Date Performed: 07/23/25 Time Performed: 17:00 Patient Location: PACU Vital Signs Most Recent Imported Vital Signs: Most Recent Vital Signs Temp Pulse Resp BP Pulse Ox 36.5 C 61 14 115/71 93 07/23/25 17:05 07/23/25 17:05 07/23/25 17:05 07/23/25 17:05 07/23/25 17:05 Most Recent Vital Signs Temp Pulse Resp BP Pulse Ox 36.5 C 61 14 115/71 93 07/23/25 17:05 07/23/25 17:05 07/23/25 17:05 07/23/25 17:05 07/23/25 17:05 Pain Score Most Recent Pain Score: Most Recent Pain Score Pain Level 07/23/25 17:11 Assessment Mental Status: Awake (Alert & Oriented to Patient Baseline) Airway and Respiratory Function: Patent airway with normal (patient baseline) respiratory exam Cardiovascular Function: Hemodynamically Stable Hydration Status: Adequately Hydrated Nausea & Vomiting: No Nausea or Vomiting Pain: Pain is Moderate or Severe Postoperative Pain Management: Pain being addressed with medication Peripheral Nerve Block: Patient did not receive a nerve block Teaching Patient Teaching: Discussed Safe Use of Pain Medication Given Recent Anesthesia and Discussed the importance of using CPAP/BiPAP during any sleep period Postoperative Comments:: Patient in PACU, awake and talking. Reviewed anesthetic and offered opportunity for questions. Patient reports discomfort, but working on pain control. Tolerating PO intake.
[2025-07-23] MEDS: oxyCODONE 5 MG TAB PO (18:13)
--- NOTE | 2025-07-23 19:12 | W.PC.ACHO ---
Registration Status: ADM МАРИНА Primary Language: Preferred Language: Mongolian Medical / Surgical History (Last Reviewed 07/23/25 @ 10:24 by Cara Anthony RN) Barretts esophagus GERD (gastroesophageal reflux disease) Essential hypertension History of cardiac catheterization KATHE (obstructive sleep apnea) BPH (benign prostatic hyperplasia) (Last Reviewed 07/23/25 @ 10:24 by Cara Anthony RN) S/P cholecystectomy Spinal Surgery Rotator Cuff Repair (11/20/16) Repair, Tendon or Muscle EGD - MAC Colonoscopy - MAC Cholecystectomy (10/31/17) Cardiac Catheterization Arthroplasty of knee Appendectomy Most Recent Vital Signs Temperature 36.0 C L 07/23/25 18:42 Temperature Source Temporal Artery Scan 07/23/25 18:42 Pulse 54 L 07/23/25 18:42 Pulse Rhythm Regular 07/23/25 10:17 Pulse 66 07/23/25 17:32 Respiratory Rate 14 07/23/25 18:42 Respiratory Depth Normal 07/23/25 10:17 Blood Pressure 116/80 07/23/25 18:42 Blood Pressure Mean 92 07/23/25 18:42 Pulse Oximetry 96 07/23/25 18:42 Respiratory End-tidal CO2 45 07/23/25 16:31 Oxygen Delivery Method OxyMask 07/23/25 18:42 Oxygen Flow Rate 3 07/23/25 18:42 Pain Level 8 07/23/25 18:42 Allergies No Known Allergies Allergy (Verified 07/23/25 10:12) Active Medications Generic Name Dose Route Start Last Admin Trade Name Freq PRN Reason Stop Dose Admin Ephedrine Sulfate 0 mg 07/23/25 16:08 07/23/25 16:55 Ephedrine 25 Mg/5 Ml Syringe IVP 08/22/25 16:07 5 mg DIRECTED PRN Administration Fentanyl 0 mcg 07/23/25 16:08 07/23/25 16:36 Fentanyl 100 Mcg/2 Ml Vial IVP 08/22/25 16:07 50 mcg DIRECTED PRN Administration Hydromorphone HCl 0 mg 07/23/25 16:08 07/23/25 17:03 Hydromorphone 2 Mg/Ml Syr IVP 08/22/25 16:07 0.5 mg DIRECTED PRN Administration Ringer's Solution 1,000 mls @ 30 mls/hr 07/23/25 06:00 07/23/25 17:17 IV 07/23/25 23:59 30 mls/hr INFUSION ROE Administration Cefazolin Sodium 3,000 mg/ 100 mls @ 200 mls/hr 07/23/25 06:00 07/23/25 14:18 Sodium Chloride IV 07/23/25 23:59 Infused PREOP ROE Infusion Tranexamic Acid/Sodium Chloride 1,000 mg in 100 mls @ 600 mls/hr 07/23/25 06:00 07/23/25 14:00 IVPB 07/23/25 23:59 Infused PREOP ROE Infusion Oxycodone HCl 0 mg 07/23/25 09:12 07/23/25 18:13 Oxycodone 5 Mg Tab PO 08/22/25 09:11 10 mg Q3H PRN PRN Administration Pain IV IV Catheter Type [Right Peripheral IV Forearm] IV Catheter Gauge [Right 20 Forearm] Diet Orders Category Date Time Status Regular/Normal [DIET] Nutrition 07/23/25 Dinner Active Intake and Output - 24 Hour Total 07/01/25 12:06 thru 07/23/25 17:52 Intake Total 1422 Balance 1422 Weight 121.5 kg Intake: IV 1200 Oral 222 Other: Emesis Description None v v v v v v v v v Sending and/or Receiving Nurses: Please use comment section below to note any information pertinent to the patient hand-off not included above. Information / Comments: AOx4, VSS, when asleep requires supplemental O2, currently on 6L via mask. C/o pain in R knee, fentanyl given with good effect. Last bladder scan at 5pm - 240 ml. Dressing c/d/i. pedal pulses are equal, cap refill <2sec. Had a headache that improved with [employer]. IVF running via RFA IV. Transferred to the floor to be d/c when meets d/c criteria. Report received from: DANDY TENDER
[2025-07-23] MEDS: Tamsulosin 0.4 MG CAPCR 0.8 MG PO (19:59)
[2025-07-23] MEDS: ceFAZolin 1 GM/50 ML BAG IVPB (20:04)
[2025-07-23] MEDS: Ondansetron 4 MG/2 ML VIAL IVP (21:32)
[2025-07-24] MEDS: Acetaminophen 500 MG TAB 1000 MG PO (01:40)
[2025-07-24 03:05] VITALS: BP 126/86; PULSE 72; RESP 16; TEMP 36.6; O2SAT 98
[2025-07-24] MEDS: ceFAZolin 1 GM/50 ML BAG IVPB (03:39)
[2025-07-24 07:28] VITALS: BP 140/84; PULSE 69; RESP 16; TEMP 36.6; O2SAT 97
--- NOTE | 2025-07-24 08:31 | PDOC.CMPRO ---
Date of service: 07/24/25 Time of Service: 08:31 Care Management Progress Note Progress Note Text Progress Note Text: Tre underwent ACL reconstruction yesterday with Dr. Chambers after he had a sprain of his right knee. He was hoping to discharge yesterday after surgery, but he was unable to void and it got to be late in the night so he was kept. Tre stated that today he is voiding, has been up ambulating, and stated that he is ready to go home. 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 He will be well supported at home and has no community needs at this time. Esther was given excellent discharge instructions from the surgeon, and he will f/u with surgery in 10-14 days. Discharge Potential Discharge Needs: PCP F/U Appt Anticipated Barriers to Discharge: None Identified Patient/Family Education Needs: Review discharge instructions, discuss Ask Me Three Transportation: Private vehicle Plan: Esther is being discharged home today with no new services. He will f/u with his PCP and with the orthopedic surgeon and continue per his plan of care. Tre will be transported home by a friend. Social Determinants of Health Screening Will the Patient Participate in the Screening?: Declined to provide
[2025-07-24] MEDS: Esomeprazole 40 MG CAPCR PO (09:07)
[2025-07-24] MEDS: hydroCHLOROthiazide 25 MG TAB PO (09:07)
[2025-07-24] MEDS: Aspirin E.C. 81 MG TABEC PO (09:07)
[2025-07-24] MEDS: oxyCODONE 5 MG TAB PO (09:23)
== END 2025-07-24 12:23 ==
LOC: MS 17:48
PROVIDERS: Admitting Provider Student in an Organized Health Care Education/Training Program; PCP Nurse Practitioner Family; Responsible Provider Student in an Organized Health Care Education/Training Program; Visit Provider Student in an Organized Health Care Education/Training Program
PROC: (CPT 29888; principal; 2025-07-23 12:15)
DX: S83.511A Sprain of anterior cruciate ligament of right knee, initial encounter (principal); S83.281A Other tear of lateral meniscus, current injury, right knee, initial encounter; S83.241A Other tear of medial meniscus, current injury, right knee, initial encounter; M17.12 Unilateral primary osteoarthritis, left knee; G47.33 Obstructive sleep apnea (adult) (pediatric); K21.9 Gastro-esophageal reflux disease without esophagitis; N40.0 Benign prostatic hyperplasia without lower urinary tract symptoms; I10 Essential (primary) hypertension; K22.70 Barrett's esophagus without dysplasia; R73.01 Impaired fasting glucose; E78.5 Hyperlipidemia, unspecified; M22.42 Chondromalacia patellae, left knee; W20.8XXA Other cause of strike by thrown, projected or falling object, initial encounter
CPT/HCPCS: 29888; 29880; 94660; 94760; G0378; J0131; J0665; J0690; J1100; J1171; J1885; J2003; J2250; J2371; J2401; J2405; J2704; J3010; J3373; J3475